=== PATIENT | female | born 1935 | race Caucasian/White ===

== ENCOUNTER → 2019-07-07 09:22 | Outpatient (BNVA) | payer BC, SELFPAY | PROVIDERS: PCP Family Medicine; Referring Provider Family Medicine; Visit Provider Otolaryngology | DX: H90.5 Unspecified sensorineural hearing loss (principal) | CPT/HCPCS: 99203; 99214 ==

== ENCOUNTER → 2019-07-30 10:00 | Outpatient (BNVA) | payer BC, SELFPAY | PROVIDERS: PCP Family Medicine; Visit Provider Family Medicine | DX: F03.90 Unspecified dementia, unspecified severity, without behavioral disturbance, psychotic disturbance, mood disturbance, and anxiety (principal); F41.9 Anxiety disorder, unspecified; F32.9 Major depressive disorder, single episode, unspecified; W19.XXXA Unspecified fall, initial encounter | CPT/HCPCS: 80053; 82607; 84443; 85025 ==

== ENCOUNTER 2020-01-14 08:53 | Emergency (ER) | payer BC, SELFPAY ==
[2020-01-14 08:55] VITALS: BP 142/73; PULSE 94; RESP 18; TEMP 36.3; O2SAT 96
[2020-01-14 09:22] LABS: Basophils % 0.2 %; Eosinophils % 0.5 %; Hemoglobin 10.8 g/dL (11.5-15.3); Lymphocytes # 1.5 10^3/uL (0.8-4.8); Lymphocytes % 35.3 %; Mean Corpuscular HGB Conc 31.8 g/dL (30.0-36.0); Mean Corpuscular Hemoglobin 29.9 pg (28.0-34.0); Mean Corpuscular Volume 94.2 fL (81-99); Mean Platelet Volume 10.4 fL (7.4-10.4); Monocytes # 0.4 10^3/uL (0.2-0.9); Monocytes % 9.7 %; Neutrophils # 2.27 10^3/uL (1.8-7.7); Neutrophils % 53.8 %; Nucleated Red Blood Cells % 0 %; Platelet Count 193 10^3/cmm (130-400); Red Blood Count 3.61 10^6/uL (4.1-5.3); Red Cell Distribution Width 12.9 % (12.1-15.1); White Blood Count 4.2 10^3/uL (4.0-10.0)
[2020-01-14 09:39] LABS: Alanine Aminotransferase 11 U/L (0-33); Albumin Level 4.1 g/dL (3.5-5.2); Alkaline Phosphatase 95 IU/L (35-105); Aspartate Amino Transferase 20 U/L (0-32); Blood Urea Nitrogen 13 mg/dL (8-23); Calcium 9.3 mg/dL (8.5-10.5); Carbon Dioxide 27 mmol/L (22-29); Chloride 104 mmol/L (98-107); Glucose 117 mg/dL (65-115); Osmolality Calculated 285 mOsm/kg (285-295); Sodium 139 mmol/L (136-145); Total Bilirubin 0.6 mg/dL (0.15-1.2); Total Protein 6.1 g/dL (6.6-8.7)
[2020-01-14 09:41] LABS: Anion Gap 12.3 (5-19); Potassium 4.3 mmol/L (3.5-5.1)
--- NOTE | 2020-01-14 09:49 | W.ED.FEMALGU ---
HPI - Female Genitourinary General: Chief complaint: Vaginal Bleeding Stated complaint: HEMORRHAGING Time Seen by Provider: 01/14/20 09:03 History of Present Illness: HPI Narrative: This patient is an 84-year-old female who lives at home with her daughter. Apparently she has been having some vaginal bleeding off and on for about a month. In the last 2 days it is become more prominent. The patient says it is bright red. She has not seen any clots. She said it was enough blood to be running down her leg. She is certain that it is not coming from her rectum or anywhere else. She had a hysterectomy about 45 years ago. She does not know why she had a hysterectomy. She denies any other complaints. MD elicited complaint: vaginal bleeding Associated symptoms: Deny vaginal bleeding Review of Systems General: Reports: ROS unobtainable due to medical condition (Dementia) [facility] ED PFSH: Medical History (Updated 01/14/20 @ 11:02 by Mena Velázquez MD) Anxiety and depression Dementia Fall Hypertension Sensorineural hearing loss Social History Smoking and tobacco status: former smoker Alcohol intake: never Physical Exam Const: COMMON NORMALS: no acute distress, patient oriented x3 and alert GENERAL APPEARANCE: cooperative and comfortable HENMT: HEAD & SCALP: normal to inspection FACE & SINUS: normal facial exam Eye: GENERAL EYE: appearance normal, both eyes and all related structures Neck/C-Spine: COMMON NORMALS: supple, no meningeal signs and no JVD Chest: COMMONS NORMALS: normal inspection of the chest Resp: COMMON NORMALS: normal respiratory effort, No use of accessory muscles and clear to auscultation bilaterally AUSCULTATION: clear to auscultation bilaterally Cardio: COMMON NORMALS: no JVD, regular rate, regular rhythm and No murmurs present (Cardio) RATE: regular rate RHYTHM: regular rhythm GI: COMMON NORMALS: Normal to inspection, nondistended, normoactive bowel sounds present, Soft to palpation and non-tender INSPECTION: Yes normal to inspection AUSCULTATION: Yes normoactive bowel sounds PALPATION: Yes Soft to palpation RECTAL EXAM: External hemorrhoid(s) present (Not thrombosed or bleeding) : COMMON NORMALS: Yes normal appearance of the vagina and No normal appearance of the cervix (Status post hysterectomy) EXTERNAL FEMALE EXAM: No laceration SPECULUM EXAM - VAGINA: No laceration and No vaginal bleeding OB/EXTERNAL & SPECULUM: No vaginal bleeding Back/Pelvis: COMMON NORMALS: thoracic and lumbar spine normal to inspection Extremity: COMMON NORMALS: normal to inspection Neuro: COMMON NORMALS: patient oriented x3, moves all extremities, no focal motor deficits and no sensory deficits noted SENSORIUM/ORIENTATION: Yes alert MENINGEAL SIGNS: Yes no meningeal signs Psych: COMMON NORMALS: mental status grossly normal, cooperative and normal affect Skin: COMMON NORMALS: no rashes or lesions noted and turgor normal GENERAL SKIN EXAM: no rashes or lesions noted and turgor normal Course ED course: Initial PT/INR came back higher than measurable. This was repeated several times and it was determined to be a lab error. The original specimen was rerun eventually and was normal. Exam was completely benign. Vitals are normal. Labs are unremarkable. She will be discharged home for follow-up with her outpatient provider. This could be blood coming from the rectum and she understands a colonoscopy might be indicated. Vital Signs: Vital signs: Vital Signs Temperature 97.4 F L 01/14/20 08:55 Pulse Rate 90 01/14/20 13:22 Respiratory Rate 17 01/14/20 13:22 Blood Pressure 151/81 01/14/20 13:22 Pulse Oximetry 98 01/14/20 13:22 MDM - Female Lab Data: Labs: Lab Results 01/14/20 01/14/20 01/14/20 Range/Units 09:10 09:10 09:10 WBC 4.2 (4.0-10.0) 10^3/ uL RBC 3.61 L (4.1-5.3) 10^6/u L Hgb 10.8 L (11.5-15.3) g/dL Hct 34.0 L (37.0-47.0) % MCV 94.2 (81-99) fL MCH 29.9 (28.0-34.0) pg MCHC 31.8 (30.0-36.0) g/dL RDW 12.9 (12.1-15.1) % Plt Count 193 (130-400) 10^3/c mm MPV 10.4 (7.4-10.4) fL Neut % (Auto) 53.8 % Lymph % (Auto) 35.3 % Pickett % (Auto) 9.7 % Eos % (Auto) 0.5 % Baso % (Auto) 0.2 % Neut # (Auto) 2.27 (1.8-7.7) 10^3/u L Lymph # (Auto) 1.5 (0.8-4.8) 10^3/u L Pickett # (Auto) 0.4 (0.2-0.9) 10^3/u L Eos # (Auto) 0.0 (0.0-0.8) 10^3/u L Baso # (Auto) 0.0 (0.0-0.1) 10^3/u L Nucleated RBC % (a uto) 0 % Nucleated RBCs # 0.0 /100WBC PT 13.30 (12.1-14.9) SECO NDS INR 0.98 (0.8-1.2) APTT Sodium 139 (136-145) mmol/L Potassium 4.3 (3.5-5.1) mmol/L Chloride 104 (98-107) mmol/L Carbon Dioxide 27 (22-29) mmol/L Anion Gap 12.3 (5-19) BUN 13 (8-23) mg/dL Creatinine 0.7 (0.5-0.9) mg/dL GFR Calculation Not Reportable Glucose 117 H (65-115) mg/dL Calculated Osmolal ity 285 (285-295) mOsm/k g Calcium 9.3 (8.5-10.5) mg/dL Total Bilirubin 0.6 (0.15-1.2) mg/dL AST 20 (0-32) U/L ALT 11 (0-33) U/L Alkaline Phosphata se 95 (35-105) IU/L Total Protein 6.1 L (6.6-8.7) g/dL Albumin 4.1 (3.5-5.2) g/dL Globulin 2.0 (1.3-4.6) g/dL Urine Color (Yellow) Urine Appearance (CLEAR) Urine pH (5-7) Ur Specific Gravit y (1.005-1.030) Urine Protein (Negative) Urine Glucose (UA) (Normal) Urine Ketones (Negative) Urine Blood (Negative) Urine Nitrate (Negative) Urine Bilirubin (NEGATIVE) Urine Urobilinogen (Negative) mg/dL Ur Leukocyte Isabelle ase (Negative) Urine RBC (0-2) /hpf Urine WBC (0-5) /hpf Ur Squamous Epith Cells (0-5) Amorphous Sediment Urine Bacteria (NONE) Urine Mucus 01/14/20 01/14/20 01/14/20 Range/Units 09:25 10:30 11:34 WBC (4.0-10.0) 10^3/ uL RBC (4.1-5.3) 10^6/u L Hgb (11.5-15.3) g/dL Hct (37.0-47.0) % MCV (81-99) fL MCH (28.0-34.0) pg MCHC (30.0-36.0) g/dL RDW (12.1-15.1) % Plt Count (130-400) 10^3/c mm MPV (7.4-10.4) fL Neut % (Auto) % Lymph % (Auto) % Pickett % (Auto) % Eos % (Auto) % Baso % (Auto) % Neut # (Auto) (1.8-7.7) 10^3/u L Lymph # (Auto) (0.8-4.8) 10^3/u L Pickett # (Auto) (0.2-0.9) 10^3/u L Eos # (Auto) (0.0-0.8) 10^3/u L Baso # (Auto) (0.0-0.1) 10^3/u L Nucleated RBC % (a uto) % Nucleated RBCs # /100WBC PT Cancelled 14.10 (12.1-14.9) SECO NDS INR Cancelled 1.06 (0.8-1.2) APTT Cancelled 26.1 Sodium (136-145) mmol/L Potassium (3.5-5.1) mmol/L Chloride (98-107) mmol/L Carbon Dioxide (22-29) mmol/L Anion Gap (5-19) BUN (8-23) mg/dL Creatinine (0.5-0.9) mg/dL GFR Calculation Glucose (65-115) mg/dL Calculated Osmolal ity (285-295) mOsm/k g Calcium (8.5-10.5) mg/dL Total Bilirubin (0.15-1.2) mg/dL AST (0-32) U/L ALT (0-33) U/L Alkaline Phosphata se (35-105) IU/L Total Protein (6.6-8.7) g/dL Albumin (3.5-5.2) g/dL Globulin (1.3-4.6) g/dL Urine Color Yellow (Yellow) Urine Appearance Cloudy (CLEAR) Urine pH 5 (5-7) Ur Specific Gravit y 1.025 (1.005-1.030) Urine Protein Neg (Negative) Urine Glucose (UA) Norm (Normal) Urine Ketones 1+ H (Negative) Urine Blood 3+ H (Negative) Urine Nitrate Negative (Negative) Urine Bilirubin 1+ H (NEGATIVE) Urine Urobilinogen 1 H (Negative) mg/dL Ur Leukocyte Isabelle ase 2+ H (Negative) Urine RBC 0-4 H (0-2) /hpf Urine WBC 10-15 H (0-5) /hpf Ur Squamous Epith Cells 15-25 H (0-5) Amorphous Sediment Not Reportable Urine Bacteria 1+ H (NONE) Urine Mucus 2+ Discharge Plan Discharge Clinical Impression: Bleeding, Normal genital exam Condition: Stable Prescriptions: No Action cyanocobalamin (vitamin B-12) 1,000 mcg capsule 1,000 mcg PO DAILY 90 Days Qty: 90 RF: 1 donepezil 5 mg tablet 5 mg PO DAILY RF: 0 lisinopril 5 mg tablet 5 mg PO DAILY RF: 0 Discharge Orders: Discharge Order (Routine); Ordered 01/14/20 Ordered By: Mena Velázquez Referrals: Lowell Benson MD [Primary Care Provider] - Discharge Diet: Usual diet Discharge Activity: Resume usual activity Patient Instructions: Hemorrhoids (ED) Activity Restrictions/Additional Instructions: Follow-up with your primary care provider for further evaluation if bleeding continues. No source of bleeding was found today. Continue your regular medications. Discharge Date/Time: 01/14/20 13:22 Coding Level of Care Code ED Expanded Duty Dental Assistant for Anabel Goldman
[2020-01-14 09:58] LABS: Add Urine Microscopic? YES; Bilirubin Urine 1+ (NEGATIVE); Blood Urine 3+ (Negative); Glucose Urine UA Norm (Normal); Ketones Urine 1+ (Negative); Leukocyte Esterase Urine 2+ (Negative); Nitrate Urine Negative (Negative); Protein Urine Neg (Negative); Specific Gravity, Urine 1.025 (1.005-1.030); Urine Appearance Cloudy (CLEAR); Urine Color Yellow (Yellow); Urobilinogen Urine 1 mg/dL (Negative); pH Urine 5 (5-7)
[2020-01-14 10:00] LABS: Bacteria Urine 1+; Mucus Urine 2+; RBC Urine 0-4 /hpf (0-2); Squamous Epithelial Cell Urine 15-25 (0-5)
[2020-01-14 10:01] VITALS: BP 133/65; PULSE 84; RESP 18; O2SAT 97
[2020-01-14 10:01] LABS: Add Urine Culture? No
[2020-01-14 11:54] LABS: INR 1.06 (0.8-1.2)
[2020-01-14 11:55] LABS: Partial Thromboplastin Time 26.1 SECONDS (23.9-36.7)
[2020-01-14 13:02] LABS: INR 0.98 (0.8-1.2)
[2020-01-14 13:22] VITALS: BP 151/81; PULSE 90; RESP 17; O2SAT 98
== END 2020-01-14 13:22 ==
PROVIDERS: Emergency Provider Emergency Medicine; PCP Family Medicine
DX: N93.9 Abnormal uterine and vaginal bleeding, unspecified (principal); F03.90 Unspecified dementia, unspecified severity, without behavioral disturbance, psychotic disturbance, mood disturbance, and anxiety; I10 Essential (primary) hypertension; Z87.891 Personal history of nicotine dependence
CPT/HCPCS: 12345; 36415; 80053; 81001; 85025; 85610; 85730; 99282; E0352

== ENCOUNTER 2020-02-09 12:55 | Emergency (ER) | payer BC, SELFPAY ==
[2020-02-09] VITALS (7 sets, daily range): BP systolic 102–142; BP diastolic 53–90; PULSE 75–83; RESP 14–18; O2SAT 94–100; BMI 20.7
--- NOTE | 2020-02-09 13:16 | XRR_ITS ---
PROCEDURE INFORMATION: Exam: XR Chest, 1 View Exam date and time: 02/09/2020 1:49 PM Age: 84 years old Clinical indication: Injury or trauma; Fall; Initial encounter; Blunt trauma (contusions or hematomas); Additional info: Fall, left ankle pain TECHNIQUE: Imaging protocol: XR of the chest Views: 1 view. COMPARISON: No relevant prior studies available. FINDINGS: Lungs: Unremarkable. No consolidation. Pleural space: Unremarkable. No pleural effusion. No pneumothorax. Heart/Mediastinum: Unremarkable. No cardiomegaly. Bones/joints: Unremarkable. XR/XR chest 1V portable [id number] IMPRESSION: No acute findings.
--- NOTE | 2020-02-09 13:16 | XRR_ITS ---
PROCEDURE INFORMATION: Exam: XR Left Ankle Exam date and time: 02/09/2020 1:47 PM Age: 84 years old Clinical indication: Pain and injury or trauma; Fall; Initial encounter; Blunt trauma; Ankle; Left TECHNIQUE: Imaging protocol: XR Left ankle. Views: 3 or more views. COMPARISON: No relevant prior studies available. FINDINGS: Bones/joints: There are fractures of the distal fibula and medial malleolus. There is dislocation at the left tibiotalar joint with the tibia anterior to the talus. There is osteopenia. Soft tissues: There is soft tissue swelling along the lateral, medial and anterior left ankle. XR/XR ankle LT min 3V* [id number] IMPRESSION: There is fracture dislocation of the left ankle as described above.
--- NOTE | 2020-02-09 13:16 | ECG_ITS ---
[facility] Test Date: 2020-02-09 Pat Name: Paige Regalado Department: Room: Gender: Female Heel Boom Operator: : [id number] Requested By: Deepak Perez Order Number: [id number] Reading MD: Rocío Yang M.D. Measurements Intervals [place] Rate: 63 P: 60 VT: 131 QRS: 47 QRSD: 96 T: 44 QT: 433 QTc: 445 Interpretive Statements SINUS RHYTHM WITH OCCASIONAL SUPRAVENTRICULAR PREMATURE COMPLEXES No previous ECG available for comparison Some nonspecific ST changes in the inferior leads Electronically Signed On 02-09-2020 18:32:19 CDT by Rocío Yang M.D. [id number]
--- NOTE | 2020-02-09 13:18 | ED_ITS ---
Documented by User: KATLIN Trivedi 02/10/20 07:05 HPI - Extremity Problem General: Chief complaint: Extremity Injury, Lower Stated complaint: Left ankle pain Time Seen by Provider: 02/09/20 13:00 [facility] ED PFSH: Medical History Anxiety and depression Dementia Fall Hypertension Sensorineural hearing loss Social History Smoking and tobacco status: former smoker Alcohol intake: never Course Vital Signs: Vital signs: Vital Signs Pulse Rate 78 02/09/20 15:54 Respiratory Rate 18 02/09/20 15:54 Blood Pressure 142/79 02/09/20 15:54 Pulse Oximetry 97 02/09/20 15:54 MDM - Extremity (Nontraumatic) Lab Data: Labs: Lab Results 02/09/20 02/09/20 02/09/20 Range/Units 13:27 13:27 13:27 WBC 5.3 (4.0-10.0) 10^3/ uL RBC 3.49 L (4.1-5.3) 10^6/u L Hgb 10.7 L (11.5-15.3) g/dL Hct 33.0 L (37.0-47.0) % MCV 94.6 (81-99) fL MCH 30.7 (28.0-34.0) pg MCHC 32.4 (30.0-36.0) g/dL RDW 12.7 (12.1-15.1) % Plt Count 187 (130-400) 10^3/c mm MPV 10.0 (7.4-10.4) fL Neut % (Auto) 66.8 % Lymph % (Auto) 22.7 % Calloway % (Auto) 8.8 % Eos % (Auto) 0.6 % Baso % (Auto) 0.4 % Neut # (Auto) 3.57 (1.8-7.7) 10^3/u L Lymph # (Auto) 1.2 (0.8-4.8) 10^3/u L Calloway # (Auto) 0.5 (0.2-0.9) 10^3/u L Eos # (Auto) 0.0 (0.0-0.8) 10^3/u L Baso # (Auto) 0.0 (0.0-0.1) 10^3/u L Nucleated RBC % (a uto) 0 % Nucleated RBCs # 0.0 /100WBC PT 14.20 (12.1-14.9) SECO NDS INR 1.06 (0.8-1.2) Sodium 138 (136-145) mmol/L Potassium 3.8 (3.5-5.1) mmol/L Chloride 100 (98-107) mmol/L Carbon Dioxide 25 (22-29) mmol/L Anion Gap 16.8 (5-19) BUN 20 (8-23) mg/dL Creatinine 0.6 (0.5-0.9) mg/dL GFR Calculation Not Reportable Glucose 137 H (65-115) mg/dL Calculated Osmolal ity 291 (285-295) mOsm/k g Calcium 8.5 (8.5-10.5) mg/dL Total Bilirubin 0.4 (0.15-1.2) mg/dL AST 15 (0-32) U/L ALT 10 (0-33) U/L Alkaline Phosphata se 76 (35-105) IU/L Total Protein 6.3 L (6.6-8.7) g/dL Albumin 3.9 (3.5-5.2) g/dL Globulin 2.4 (1.3-4.6) g/dL Nasal/Oral COVID-1 9 PCR //20 Range/Units 15:28 WBC (4.0-10.0) 10^3/ uL RBC (4.1-5.3) 10^6/u L Hgb (11.5-15.3) g/dL Hct (37.0-47.0) % MCV (81-99) fL MCH (28.0-34.0) pg MCHC (30.0-36.0) g/dL RDW (12.1-15.1) % Plt Count (130-400) 10^3/c mm MPV (7.4-10.4) fL Neut % (Auto) % Lymph % (Auto) % Calloway % (Auto) % Eos % (Auto) % Baso % (Auto) % Neut # (Auto) (1.8-7.7) 10^3/u L Lymph # (Auto) (0.8-4.8) 10^3/u L Calloway # (Auto) (0.2-0.9) 10^3/u L Eos # (Auto) (0.0-0.8) 10^3/u L Baso # (Auto) (0.0-0.1) 10^3/u L Nucleated RBC % (a uto) % Nucleated RBCs # /100WBC PT (12.1-14.9) SECO NDS INR (0.8-1.2) Sodium (136-145) mmol/L Potassium (3.5-5.1) mmol/L Chloride (98-107) mmol/L Carbon Dioxide (22-29) mmol/L Anion Gap (5-19) BUN (8-23) mg/dL Creatinine (0.5-0.9) mg/dL GFR Calculation Glucose (65-115) mg/dL Calculated Osmolal ity (285-295) mOsm/k g Calcium (8.5-10.5) mg/dL Total Bilirubin (0.15-1.2) mg/dL AST (0-32) U/L ALT (0-33) U/L Alkaline Phosphata se (35-105) IU/L Total Protein (6.6-8.7) g/dL Albumin (3.5-5.2) g/dL Globulin (1.3-4.6) g/dL Nasal/Oral COVID-1 9 PCR Negative Discharge Plan Discharge Patient Disposition: Home Clinical Impression: Trimalleolar fracture of left ankle Condition: Stable Prescriptions: New hydrocodone-acetaminophen 5-325 mg tablet 1 tab PO Q6H PRN (Reason: pain) Qty: 20 RF: 0 Zofran 4 mg tablet 4 mg PO Q6H PRN (Reason: nausea and vomiting) Qty: 15 RF: 0 No Action hydrocodone-acetaminophen [[place]] 5-325 mg tablet 1 tab PO Q4H PRN (Reason: pain) 7 Days Qty: 30 RF: 0 cyanocobalamin (vitamin B-12) 1,000 mcg capsule 1,000 mcg PO DAILY 90 Days Qty: 90 RF: 1 donepezil 5 mg tablet 5 mg PO DAILY RF: 0 lisinopril 5 mg tablet 5 mg PO DAILY RF: 0 citalopram 10 mg tablet 10 mg PO DAILY RF: 0 Discharge Orders: Discharge Order (Routine); Ordered 02/09/20 Ordered By: Cale Childress Referrals: Lowell Benson MD [Primary Care Provider] - Discharge Diet: Usual diet Discharge Activity: Limit activity as instructed Activity Restrictions/Additional Instructions: Nonweightbearing on the affected limb. Case management will call for referral to orthopedics for definitive surgical care. Discharge Date/Time: 02/09/20 15:56 Coding Level of Care Code ED Cloth Laminating Supervisor for Chg Fwd Exam Comprehensive Documented by User: Cale Childress, 02/13/20 09:22 HPI - Extremity Problem General: Chief complaint: Extremity Injury, Lower Stated complaint: Left ankle pain Time Seen by Provider: 02/09/20 13:00 History of Present Illness: HPI Narrative: 84-year-old female presents emergency room via EMS she has moderate dementia she fell down 6 stairs at home she did strike her head did not lose consciousness she lives with mother family members are was not a prolonged downtime. She is complaining of left ankle pain and has a pillow splint in place. Complaint: extremity pain and joint pain Onset (ago): minute(s) Pain Consistency: constant Location: left Quality: sharp and constant Radiation: none Relieving factors: rest Exacerbating factors: palpation Associated symptoms: Deny arthralgias, chest pain, fever(s), myalgias, rash or short of breath Review of Systems Const: Denies: fever(s) ENMT: Denies: throat pain, ear or mastoid pain, nasal discharge or nasal congestion Card: Denies: chest pain Resp: Denies: dyspnea, productive cough or non-productive cough GI: Denies: abdominal pain, nausea, vomiting, hematemesis, coffee ground emesis, diarrhea, constipation, bloating, hematochezia or melena : Denies: flank pain, difficulty voiding, dysuria, urinary frequency or u rinary urgency Skin/Breast: Denies: rash PFSH ED PFSH: Medical History Anxiety and depression Dementia Fall Hypertension Sensorineural hearing loss Social History Smoking and tobacco status: former smoker Alcohol intake: never Physical Exam Const: COMMON NORMALS: no acute distress GENERAL APPEARANCE: cooperative and comfortable ORIENTATION/CONSCIOUSNESS: Yes awake, Yes oriented to person, Yes oriented to place and Yes oriented to time HENMT: COMMON NORMALS: normocephalic, atraumatic and hearing grossly normal bilaterally HEAD & SCALP: normocephalic and atraumatic Eye: COMMON NORMALS: Equal, round and reactive pupils present, EOMs intact bilaterally, conjunctivae normal and no scleral icterus CONJUNCTIVA: Yes conjunctivae normal PUPIL: Yes Equal, round and reactive pupils present Neck/C-Spine: COMMON NORMALS: full ROM, no lymphadenopathy, supple and no JVD Resp: COMMON NORMALS: normal respiratory effort, No retractions, No use of accessory muscles and clear to auscultation bilaterally AUSCULTATION: clear to auscultation bilaterally Cardio: COMMON NORMALS: no JVD, regular rate, regular rhythm and No murmurs present (Cardio) RATE: regular rate RHYTHM: regular rhythm GI: COMMON NORMALS: Soft to palpation and No hepatosplenomegaly present AUSCULTATION: Yes normoactive bowel sounds PALPATION: Yes Soft to palpation, No Tenderness to palpation present (GI), No Guarding due to palpation present (GI) and Yes No hepatosplenomegaly present Extremity: NARRATIVE EXTREMITY EXAM: Obvious deformity of the left ankle with some early bruising pulses palpable. No open wounds. Neuro: SENSORIUM/ORIENTATION: Yes oriented to person, Yes oriented to place and Yes oriented to time Skin: COMMON NORMALS: no rashes or lesions noted GENERAL SKIN EXAM: no rashes or lesions noted Procedures Orthopedic Fracture Reduction Fracture #1: Time Out Performed: Yes Side: left Fracture Reduction Location: tibia and fibula Analgesia: procedural sedation Technique: direct manipulation Post Reduction X-rays Demonstrate: anatomical reduction Post-reduction neuro exam: intact Post-reduction vascular exam: intact Splint Applied: Yes Patient Tolerated Procedure: well Additional Comments: Post reduction shows good alignment. Will splint and refer to Ortho for definitive care Procedural Sedation Indication: fracture/dislocation reduction Preparation: telemetry monitor applied, pulse oximeter, supplemental O2 applied, suction/airway equipment at bedside and IV secured IV Etomidate dose (mg): 10 Patient Tolerated Procedure: well Complications: none Course Vital Signs: Vital signs: Vital Signs Pulse Rate 78 02/09/20 15:54 Respiratory Rate 18 02/09/20 15:54 Blood Pressure 142/79 02/09/20 15:54 Pulse Oximetry 97 02/09/20 15:54 MDM - Extremity (Nontraumatic) MDM Narrative: Medical decision making narrative: Discussed with Dr. Tello. We have reduced the fracture and applied a splint. Patient tolerated procedure well after recovery she was discharged. Will make arrangements for her to follow-up with Ortho a screening COVID swab was done [facility] to [facility] her for surgery. Lab Data: Labs: Lab Results 02/09/20 02/09/20 02/09/20 Range/Units 13:27 13:27 13:27 WBC 5.3 (4.0-10.0) 10^3/ uL RBC 3.49 L (4.1-5.3) 10^6/u L Hgb 10.7 L (11.5-15.3) g/dL Hct 33.0 L (37.0-47.0) % MCV 94.6 (81-99) fL MCH 30.7 (28.0-34.0) pg MCHC 32.4 (30.0-36.0) g/dL RDW 12.7 (12.1-15.1) % Plt Count 187 (130-400) 10^3/c mm MPV 10.0 (7.4-10.4) fL Neut % (Auto) 66.8 % Lymph % (Auto) 22.7 % Calloway % (Auto) 8.8 % Eos % (Auto) 0.6 % Baso % (Auto) 0.4 % Neut # (Auto) 3.57 (1.8-7.7) 10^3/u L Lymph # (Auto) 1.2 (0.8-4.8) 10^3/u L Calloway # (Auto) 0.5 (0.2-0.9) 10^3/u L Eos # (Auto) 0.0 (0.0-0.8) 10^3/u L Baso # (Auto) 0.0 (0.0-0.1) 10^3/u L Nucleated RBC % (a uto) 0 % Nucleated RBCs # 0.0 /100WBC PT 14.20 (12.1-14.9) SECO NDS INR 1.06 (0.8-1.2) Sodium 138 (136-145) mmol/L Potassium 3.8 (3.5-5.1) mmol/L Chloride 100 (98-107) mmol/L Carbon Dioxide 25 (22-29) mmol/L Anion Gap 16.8 (5-19) BUN 20 (8-23) mg/dL Creatinine 0.6 (0.5-0.9) mg/dL GFR Calculation Not Reportable Glucose 137 H (65-115) mg/dL Calculated Osmolal ity 291 (285-295) mOsm/k g Calcium 8.5 (8.5-10.5) mg/dL Total Bilirubin 0.4 (0.15-1.2) mg/dL AST 15 (0-32) U/L ALT 10 (0-33) U/L Alkaline Phosphata se 76 (35-105) IU/L Total Protein 6.3 L (6.6-8.7) g/dL Albumin 3.9 (3.5-5.2) g/dL Globulin 2.4 (1.3-4.6) g/dL Nasal/Oral COVID-1 9 PCR // Range/Units 15:28 WBC (4.0-10.0) 10^3/ uL RBC (4.1-5.3) 10^6/u L Hgb (11.5-15.3) g/dL Hct (37.0-47.0) % MCV (81-99) fL MCH (28.0-34.0) pg MCHC (30.0-36.0) g/dL RDW (12.1-15.1) % Plt Count (130-400) 10^3/c mm MPV (7.4-10.4) fL Neut % (Auto) % Lymph % (Auto) % Calloway % (Auto) % Eos % (Auto) % Baso % (Auto) % Neut # (Auto) (1.8-7.7) 10^3/u L Lymph # (Auto) (0.8-4.8) 10^3/u L Calloway # (Auto) (0.2-0.9) 10^3/u L Eos # (Auto) (0.0-0.8) 10^3/u L Baso # (Auto) (0.0-0.1) 10^3/u L Nucleated RBC % (a uto) % Nucleated RBCs # /100WBC PT (12.1-14.9) SECO NDS INR (0.8-1.2) Sodium (136-145) mmol/L Potassium (3.5-5.1) mmol/L Chloride (98-107) mmol/L Carbon Dioxide (22-29) mmol/L Anion Gap (5-19) BUN (8-23) mg/dL Creatinine (0.5-0.9) mg/dL GFR Calculation Glucose (65-115) mg/dL Calculated Osmolal ity (285-295) mOsm/k g Calcium (8.5-10.5) mg/dL Total Bilirubin (0.15-1.2) mg/dL AST (0-32) U/L ALT (0-33) U/L Alkaline Phosphata se (35-105) IU/L Total Protein (6.6-8.7) g/dL Albumin (3.5-5.2) g/dL Globulin (1.3-4.6) g/dL Nasal/Oral COVID-1 9 PCR Negative Discharge Plan Discharge Patient Disposition: Home Clinical Impression: Trimalleolar fracture of left ankle Condition: Stable Prescriptions: New hydrocodone-acetaminophen 5-325 mg tablet 1 tab PO Q6H PRN (Reason: pain) Qty: 20 RF: 0 Zofran 4 mg tablet 4 mg PO Q6H PRN (Reason: nausea and vomiting) Qty: 15 RF: 0 No Action hydrocodone-acetaminophen [[place]] 5-325 mg tablet 1 tab PO Q4H PRN (Reason: pain) 7 Days Qty: 30 RF: 0 cyanocobalamin (vitamin B-12) 1,000 mcg capsule 1,000 mcg PO DAILY 90 Days Qty: 90 RF: 1 donepezil 5 mg tablet 5 mg PO DAILY RF: 0 lisinopril 5 mg tablet 5 mg PO DAILY RF: 0 citalopram 10 mg tablet 10 mg PO DAILY RF: 0 Discharge Orders: Discharge Order (Routine); Ordered 02/09/20 Ordered By: Cale Childress Referrals: Lowell Benson MD [Primary Care Provider] - Discharge Diet: Usual diet Discharge Activity: Limit activity as instructed Activity Restrictions/Additional Instructions: Nonweightbearing on the affected limb. Case management will call for referral to orthopedics for definitive surgical care. Discharge Date/Time: 02/09/20 15:56 Coding Level of Care Code ED Cloth Laminating Supervisor for Chg Fwd Exam Comprehensive
[2020-02-09 13:35] LABS: Basophils % 0.4 %; Eosinophils % 0.6 %; Hemoglobin 10.7 g/dL (11.5-15.3); Lymphocytes # 1.2 10^3/uL (0.8-4.8); Lymphocytes % 22.7 %; Mean Corpuscular HGB Conc 32.4 g/dL (30.0-36.0); Mean Corpuscular Hemoglobin 30.7 pg (28.0-34.0); Mean Corpuscular Volume 94.6 fL (81-99); Monocytes # 0.5 10^3/uL (0.2-0.9); Monocytes % 8.8 %; Neutrophils # 3.57 10^3/uL (1.8-7.7); Neutrophils % 66.8 %; Nucleated Red Blood Cells % 0 %; Platelet Count 187 10^3/cmm (130-400); Red Blood Count 3.49 10^6/uL (4.1-5.3); Red Cell Distribution Width 12.7 % (12.1-15.1); White Blood Count 5.3 10^3/uL (4.0-10.0)
[2020-02-09 13:54] LABS: INR 1.06 (0.8-1.2)
[2020-02-09 14:00] LABS: Alanine Aminotransferase 10 U/L (0-33); Albumin Level 3.9 g/dL (3.5-5.2); Alkaline Phosphatase 76 IU/L (35-105); Anion Gap 16.8 (5-19); Aspartate Amino Transferase 15 U/L (0-32); Blood Urea Nitrogen 20 mg/dL (8-23); Calcium 8.5 mg/dL (8.5-10.5); Carbon Dioxide 25 mmol/L (22-29); Chloride 100 mmol/L (98-107); Globulin 2.4 g/dL (1.3-4.6); Glucose 137 mg/dL (65-115); Osmolality Calculated 291 mOsm/kg (285-295); Potassium 3.8 mmol/L (3.5-5.1); Sodium 138 mmol/L (136-145); Total Bilirubin 0.4 mg/dL (0.15-1.2); Total Protein 6.3 g/dL (6.6-8.7)
[2020-02-09] MEDS: morphine 4 mg/mL SDV 1 mL IVP (14:27)
--- NOTE | 2020-02-09 15:07 | XRR_ITS ---
PROCEDURE INFORMATION: Exam: XR Left Ankle Exam date and time: 02/09/2020 3:08 PM Age: 84 years old Clinical indication: Abnormal findings; Abnormal imaging study; Left ankle; Additional info: Postreduction TECHNIQUE: Imaging protocol: XR Left ankle. Views: 1 or 2 views. COMPARISON: CR XR ankle LT min 3V* [id number] 02/09/2020 1:30 PM FINDINGS: Bones/joints: There are fractures of the medial malleolus and distal fibula. Alignment of the fracture fragments has improved, especially at the tibiotalar joint. Soft tissues: There is soft tissue swelling along the lateral malleolus. XR/XR ankle LT 2V [id number] IMPRESSION: Alignment of the fracture fragments has improved, especially at the tibiotalar joint.
--- NOTE | 2020-02-09 15:07 | DCPLANNER ---
manager army was asked to schedule a follow up appointment for patient with ortho. manager army called the ortho clinic, spoke with Pat, gave clinic patients information. manager army was told that patients information would be printed and reviewed. Clinic will call patient with appointment information.
--- NOTE | 2020-02-10 14:07 | DCPLANNER ---
Patient has a follow up appointment scheduled for Saturday, February 12, 2020 at 9:[address] Tello. Clinic will call patient with appointment information.
[2020-02-10 23:07] LABS: Coronavirus Lab Test PTC Negative
--- NOTE | 2020-02-11 08:34 | PC.NURSE ---
Pt notified of negative COVID result.
--- NOTE | 2020-02-23 15:28 | DCPLANNER ---
Patient had a follow up appointment scheduled for 02.12.20 with ortho - patient did attend appointment.
== END 2020-02-09 15:56 | disposition home or self-care (01) ==
PROVIDERS: Nurse Practitioner Family; Emergency Provider Family Medicine; PCP Family Medicine
DX: S82.852A Displaced trimalleolar fracture of left lower leg, initial encounter for closed fracture (principal); W10.8XXA Fall (on) (from) other stairs and steps, initial encounter; F03.90 Unspecified dementia, unspecified severity, without behavioral disturbance, psychotic disturbance, mood disturbance, and anxiety; I10 Essential (primary) hypertension; Z87.891 Personal history of nicotine dependence
CPT/HCPCS: 12345; 27818; 29505; 36415; 71045; 73600; 73610; 80053; 85025; 85610; 87635; 93005; 96374; 96375; 99284; J2270; J3490

== ENCOUNTER 2020-02-17 09:03 | Inpatient (IN) | payer MEDICARE, SELFPAY ==
[2020-02-17] VITALS (50 sets, daily range): BP systolic 96–159; BP diastolic 48–107; PULSE 69–136; RESP 12–29; TEMP 34.9–36.9; O2SAT 91–100
--- NOTE | 2020-02-17 | XR_ITS ---
WS: [id number] C-ARM RADIOGRAPHS LEFT ANKLE; 4 IMAGES HISTORY: ORIF ANKLE COMPARISON: 02/09/2020 Intraoperative bimalleolar ORIF. 2 screws stabilizing the medial malleolus. Plate and screw fixation distal fibular fracture. Fractures are in good position alignment. XR/XR ankle LT 2V [id number] IMPRESSION: Status post ORIF bimalleolar fractures.
--- NOTE | 2020-02-17 | SCC_ITS ---
Procedure Done: Reduction internal fixation left medial and lateral malleolus 84.9 seconds of fluoroscopic guidance, for a cumulative dose of 2.45 mGy, was provided to Dr. Tello by the radiology department. C-arm images of the LEFT ankle were saved for the patient's permanent record. [facility]
[2020-02-17] MEDS: sodium chloride 0.9% 1,000 ML 30 ML IV (05:54)
--- NOTE | 2020-02-17 05:58 | ECG_ITS ---
[facility] Test Date: 2020-02-17 Pat Name: Paige Regalado Department: Room: Gender: Female Portfolio Director: : 1935 Requested By: Vicki Avila Order Number: [id number] Brandee MD: Josse Osei M.D. Measurements Intervals [place] Rate: 74 P: 51 WV: 145 QRS: 12 QRSD: 95 T: 43 QT: 380 QTc: 424 Interpretive Statements SINUS RHYTHM WITH OCCASIONAL SUPRAVENTRICULAR PREMATURE COMPLEXES Compared to ECG 02/09/2020 15:13:13 No significant changes Electronically Signed On 02-17-2020 18:37:28 CDT by Josse Osei M.D. [id number]
--- NOTE | 2020-02-17 06:20 | ANES.PREANE2 ---
Pre-Anesthetic Assessment Pre-Anesthetic Assessment: Height/Weight: Height 1.65 m Weight 50.802 kg Temp Pulse Resp BP Pulse Ox 97.9 F 86 18 159/75 97 02/17/20 05:40 02/17/20 05:40 02/17/20 05:40 02/17/20 05:40 02/17/20 05:40 Preop Diagnosis: Left trimalleolar ankle Proposed Procedure: Operation Date: 02/17/20 07:00 Proposed Procedures p ORIF Ankle 71206 S82.852A(Left) - Evans Tello MD Familial anesthetic complications: None Was Beta Khadijah taken within 24 hours: N/A Last intake: Intake Last Liquid Date 02/16/20 Last Liquid Time 20:00 Last Solid Date 02/16/20 Last Solid Time 19:00 Social: Comment: former smoker Exam: Pre-Anes Outpt Exam: alert, oriented x 3, clear to auscultation bilaterally and regular rate & rhythm Airway: Cervical ROM: WNL MP: 2 Dentition: False CV/HEM: CV/HEM: HTN Neuropsych: Neuropsych: Dementia Anesthetic Plan: ASA status: 2 Anesthesia: General and Regional (specify below) Risk of > 500 ml blood loss (7ml/kg in children): No Meds/Allergies Current Medications: Current Medications Generic Name Dose Route Start Last Admin Trade Name Freq PRN Reason Stop Dose Admin Sodium Chloride 1,000 mls @ 30 ml s/hr 02/17/20 05:30 02/17/20 05:54 Sodium Chloride 0.9% IV 02/18/20 05:29 30 mls/hr .Q24H ABBIE Administration PFSH Anesthesia PFSH: Medical History (Updated 02/17/20 @ 00:00 by ) Anxiety and depression Dementia Fall Hypertension Sensorineural hearing loss Social History Smoking and tobacco status: former smoker Alcohol intake: never Data Anesthesia Cardiac Studies: No Data to Display
--- NOTE | 2020-02-17 06:41 | ANES.PROC ---
Anesthesia Procedures Procedure/Date: 02/17/20 Nerve Block ^: Nerve Block 1: Main Anesthesia: general anesthesia Time Out Performed: Yes Consent: requested by attending/covering physician, from patient, risks and benefits reviewed and patient agrees to proceed Nerve block location: popliteal (L) Anesthesia monitors applied: pulse oximetry, EKG, BP cuff and oxygen Nerve block position: supine Anesthetic Used: ropivicaine 0.5% and with decadron (3) Amount of anesthesia used (mL): 20 Ultrasound used to: recognize landmarks Nerve Stimulator Used?: No Interscalene/Femoral BLK: 4 stimuplex 21 g needle used for position and inplane approach, visualize local anesthetic spread and no vascular puncture identified Injection: neg aspiration of heme Patient Tolerated Procedure: well and no complications Complications: none Nerve Block 2: Main Anesthesia: general anesthesia Time Out Performed: Yes Consent: requested by attending/covering physician, from patient, risks and benefits reviewed and patient agrees to proceed Nerve block location: adductor canal (L) Anesthesia monitors applied: pulse oximetry, EKG, BP cuff and oxygen Anesthetic Used: ropivicaine 0.5% and with decadron (1) Amount of anesthesia used (mL): 10 Ultrasound used to: recognize landmarks Nerve Stimulator Used?: No Interscalene/Femoral BLK: 4 stimuplex 21 g needle used for position and inplane approach, visualize local anesthetic spread and no vascular puncture identified Injection: neg aspiration of heme Patient Tolerated Procedure: well and no complications Complications: none
--- NOTE | 2020-02-17 07:03 | W.PM.OPSUD ---
Surgery/Procedure H&P Update DATE OF PROCEDURE: February 17, 2020 DATE H&P PERFORMED: 02/12/20 PREOP DIAGNOSIS: Left trimalleolar ankle PLANNED PROCEDURE: Operation Date: 02/17/20 07:00 Proposed Procedures p ORIF Ankle 09319 S82.852A(Left) - Evans Tello MD
--- NOTE | 2020-02-17 08:29 | PM.OP ---
Operative Report Date of procedure: February 17, 2020 Pre-op Diagnosis: Left trimalleolar ankle Post-op diagnosis: same Post-op Findings: The patient had a transverse fracture of the medial malleolus at the mortise with minimal medial comminution. There was an spiral lateral malleolar fracture at the level of the mortise with a slight amount of the lateral comminution and a small posterior malleolar fragment Procedure Done: Reduction internal fixation left medial and lateral malleolus Pathology: none sent Surgeon: Evans Tello Anesthesia: General Estimated blood loss (mL): 10 Tourniquet time (min): 56 Findings: The patient had a transverse fracture of the medial malleolus at the mortise with minimal medial comminution. There was an spiral lateral malleolar fracture at the level of the mortise with a slight amount of the lateral comminution and a small posterior malleolar fragment Condition: stable Disposition: PACU Procedure: The patient was taken to the operating room and given a general anesthesia. She was given 2 g of Ancef. She was prepped and draped in the supine position with a tourniquet on the left thigh. Timeout was performed. The tourniquet was inflated 250 mmHg. Initially a 3 cm long medial incision was made over the medial malleolar fracture. There was some slight comminution of the medial wall. Talo reduction clamp was used to reduced the fracture and the fracture was secured with 2 partially-threaded cannulated screws with washers. No screws engaged the far lateral cortex. Next a 6 cm long incision was made over the distal fibula and dissection carried down with the fibula. There is a small amount of lateral comminution in the fibula was brought out to length. A short [place] Variax plate was contoured to the distal fibula. It was fixated proximally and distally with locking screws securing the fibula. Throughout the case bone quality was felt marginally adequate due to generalized osteoporosis. The wound was irrigated with saline. Deep tissues were closed with 2-0 Vicryl. The skin was closed with skin mehran. Xeroflo gauze, 4 x 4's, compressive web roll and an Navneet wrap, and a postop boot were applied. The conclusion of the procedure the patient was noted to be in atrial fibrillation cardiology was consulted for further suggested management
--- NOTE | 2020-02-17 08:32 | ECG_ITS ---
[facility] Test Date: 2020-02-17 Pat Name: Paige Regalado Department: Room: Gender: Female Systems Applications Programming Lead: : 1935 Requested By: Evans Tello Order Number: [id number] Brandee MD: Josse Osei M.D. Measurements Intervals [place] Rate: 113 P: TN: -1 QRS: 7 QRSD: 91 T: 89 QT: 328 QTc: 450 Interpretive Statements ATRIAL FIBRILLATION WITH RAPID VENTRICULAR RESPONSE NONSPECIFIC ST & T-WAVE ABNORMALITY ABNORMAL RHYTHM ECG Compared to ECG 02/17/2020 06:15:34 T-wave abnormality now present Sinus rhythm no longer present Electronically Signed On 02-17-2020 18:36:06 CDT by Josse Osei M.D. [id number]
--- NOTE | 2020-02-17 09:02 | PM.CONSULT ---
Providers/Reason For Consult Consulting Physican/Specialty*: Dr. JC Yang/cardiology Reason for Consult*: Patient with atrial fibrillation and hypotension Attending Physician: Evans Tello MD Primary Care Provider: Lowell Benson MD History of Present Illness History of Present Illness Paige Regalado is a 84 year old female who is in the operating room undergoing fixation of the trimalleolar fracture of the left ankle. During the middle of the procedure, she went into atrial fibrillation with rapid ventricular rate. Her blood pressure also dropped into the 70s. She was given esmolol bolus which did not help the heart rate. She required Kevon-Synephrine to maintain the systolic blood pressure above 100. She also was given 1.25 L of normal saline. Her blood pressure went up and stayed around 100 to 110 millimeters of mercury systolic. I was called to the operating room at this point. The heart rate was still in the 120s. Blood pressure was around 110 mmHg systolic. She was given a bolus of IV amiodarone 300 mg. Electrical cardioversion was attempted with her 125, 150, 175 and 200 J of biphasic current. She stayed in the sinus rhythm for a brief moment and then went back into atrial fibrillation, soon after these cardioversions. Currently her blood pressure is around 130/82 with a Kevon-Synephrine drip. Heart rate is in the 80s. She still in the atrial fibrillation mostly with occasional sinus beats. Remains intubated. I talked to patient's granddaughter. She has a longstanding history of hypertension. Never had any atrial fibrillation. No history for any CVA. No history for coronary artery disease or myocardial infarction. She has a history of dementia and also frequent falls. Review of Systems Narrative: CONSTITUTIONAL: No fever or chills. EYES: No blurring of vision or other visual disturbances lately. ENT: No hoarseness of voice, auditory disturbances or sore throat. CARDIOVASCULAR: As mentioned above. RESPIRATORY: No significant cough. GASTROINTESTINAL: No hematemesis or melena. GENITOURINARY: No dysuria or hematuria. INTEGUMENTARY: No skin rashes NEURO: History of dementia PSYCHIATRIC: No history of psychosis or major depression. HEMATOLOGIC: No bleeding disorders or significant anemia. ENDOCRINE: No history of polyuria or polydipsia. MUSCULOSKELETAL: Frequent falls and trimalleolar fracture of the left ankle ALLERGY/IMMUNOLOGY: As mentioned above. Meds/Allergies Home Medications and Allergies Home Medications Medication Instructions Recorded Confirmed Last Taken Type cyanocobalamin (vitamin B-12) 1,000 mcg PO DAILY 90 Days #90 cap 11/25/19 02/17/20 02/16/20 Rx 1,000 mcg capsule donepezil 5 mg PO DAILY 01/14/20 02/17/20 02/16/20 History lisinopril 5 mg PO DAILY 01/14/20 02/17/20 02/16/20 History citalopram 10 mg PO DAILY 02/09/20 02/17/20 02/16/20 History hydrocodone-acetaminophen 1 tab PO Q6H PRN #20 tab 02/09/20 02/16/20 Unknown Rx ondansetron HCl [Zofran] 4 mg PO Q6H PRN #15 tab 02/09/20 02/17/20 02/15/20 Rx hydrocodone 5 mg-acetaminophen 325 1 tab PO Q4H PRN 7 Days #30 tab 02/12/20 02/17/20 02/16/20 Rx mg tablet hydrocodone-acetaminophen [[place]] 1 tab PO Q4H PRN #20 tab 02/17/20 Unknown Rx Allergies Allergy/AdvReac Type Severity Reaction Status Date / Time No Known Allergies Allergy Verified 02/12/20 09:19 Current Medications Current Medications Generic Name Dose Route Start Last Admin Trade Name Freq PRN Reason Stop Dose Admin Sodium Chloride 1,000 mls @ 30 mls/hr 02/17/20 05:30 02/17/20 07:51 Sodium Chloride 0.9% IV 02/18/20 05:29 Infused .Q24H ABBIE Infusion PFSH Acute PFSH: Medical History Anxiety and depression Benign essential hypertension with target blood pressure below 140/90 Dementia Fall Hypertension Sensorineural hearing loss Surgical History (Updated 02/17/20 @ 11:12 by Colleen White DO) History of cholecystectomy History of open reduction and internal fixation (ORIF) procedure Left medial and lateral malleolus History of total hysterectomy Social History Smoking and tobacco status: former smoker Alcohol intake: never Vitals/I&O/Wt Last Vital Signs Temp 97.9 F 02/17/20 05:40 Pulse 87 02/17/20 08:57 Resp 18 02/17/20 05:40 BP 135/90 02/17/20 08:57 Pulse Ox 100 02/17/20 08:57 02/16/20 02/17/20 02/17/20 22:59 06:59 14:59 Intake Total 1050 / 1050 Balance 1050 / 1050 Weight last 48 hrs Weight 112 lb Physical Exam Narrative: EXAM NARRATIVE: GENERAL: The patient is intubated and sedated. HEENT: Minimal pallor, icterus or lymphadenopathy NECK: Trachea appears to be central. No masses noted. No JVD or thyromegaly appreciated. No carotid bruit. RESPIRATORY: Chest is symmetrical. No intercostals muscle retraction or any accessory muscle activation. There is no chest wall tenderness. Breath sounds are heard bilaterally. No rales or rhonchi heard. No evidence of any consolidation. BREASTS: Deferred. HEART: The heart sounds are variable. No S3. Short systolic murmur at the left sternal border. No diastolic murmurs. ABDOMEN: No vessel pulsations or distention. No tenderness. No organomegaly appreciated. No abdominal bruit. Bowel sounds are normally heard. : Deferred. RECTAL: Deferred. LYMPHATIC: No lymphadenopathy noted in the neck . EXTREMITIES: No edema or cyanosis. No clubbing. Peripheral pulses are palpable but weak bilaterally MUSCULOSKELETAL: Trimalleolar fracture of the left ankle-status post fixation SKIN: There are no significant scars or skin rash noted. NEUROPSYCHIATRIC: Patient is intubated and sedated. A&P Assessment and plan (1) New onset atrial fibrillation: Patient needs to be closely monitored in the ICU. Will do an echocardiogram to evaluate LV function and also look for any wall motion normalities. Will start her on an esmolol drip. Patient on the response, further management decisions will be made. Status: Acute (2) Hypotension: This could be multifactorial. Patient may be carefully hydrated. May be appropriate to continue the vasopressor for the time being. Based on the clinical progress, further recommendations will be made. Status: Acute (3) Benign essential hypertension with target blood pressure below 140/90: Patient apparently was normotensive prior to the procedure. Status: Acute Additional A&P Information Will get serial cardiac enzymes and EKGs to rule out myocardial infarction. Will be closely monitored on telemetry. Discussed with Coding Level of Care Code Acute Tongue And Quarter Stitcher for Anabel Fwd Diagnoses New onset atrial fibrillation I48.91 Hypotension I95.9 Benign essential hypertension with target blood pressure below 140/90 I10
--- NOTE | 2020-02-17 09:15 | PC.NURSE ---
Pt arrived to ICU from surgery. A-fib at rate in 80 s noted. Art line noted right wirst, very positional. IV site noted left forearm. Pt on 3lpm/ simple mask. Pt answering questions. Pt also asked ow is she? Hpothermia noted, Difficulty obtaining temp, 4 th attempt 94.8 axillary.
--- NOTE | 2020-02-17 09:19 | USCV_ITS ---
Paige Regalado Age: 84 Gender: F : 1935 Exam Date: 02/17/2020 09:46 Ordering Phys: Rocío Yang MD ([email or web address]) Technologist: Michelle Silva Exam Location: [facility] [place] Indication: AFIB BP: / HR: 103 Rhythm: Atrial fibrillation Technical Quality: Fair MEASUREMENTS (Male / Female) Normal Values 2D ECHO LV Diastolic Diameter PLAX 4.0 cm 4.2 - 5.9 / 3.9 - 5.3 cm LV Systolic Diameter PLAX 3.4 cm LV Chamber Size 4.2 cm IVS Diastolic Thickness 0.8 cm 0.6 - 1.0 / 0.6 - 0.9 cm IVS Systolic Thickness 1.2 cm LVPW Diastolic Thickness 0.7 cm 0.6 - 1.0 / 0.6 - 0.9 cm LVPW Systolic Thickness 0.8 cm RV Chamber Size 2.8 cm LVOT Diameter 2.0 cm LV Ejection Fraction 2D Teich 32.9 % LV Ejection Fraction MOD 2C 56.5 % LV Ejection Fraction 2C AL 59.5 % LA Diameter 3.5 cm LA Width 4.0 cm LA Height 4.8 cm RA Width 2.3 cm RA Height 4.2 cm Aorta at Sinotubular Diameter 2.8 cm M-MODE LV Diastolic Diameter MM 5.4 cm 4.2 - 5.9 / 3.9 - 5.3 cm LV Systolic Diameter MM 4.0 cm LV Ejection Fraction MM Teich 49.6 % IVS Diastolic Thickness MM 0.8 cm 0.6 - 1.0 / 0.6 - 0.9 cm IVS Systolic Thickness MM 0.8 cm LVPW Diastolic Thickness MM 0.9 cm 0.6 - 1.0 / 0.6 - 0.9 cm LVPW Systolic Thickness MM 1.3 cm Aortic Annulus Diameter 3.2 cm LA Ao Ratio MM 1.2 MV E Point Septal Separation 0.1 cm DOPPLER AV Peak Velocity 119.0 cm/s LVOT Peak Velocity 84.0 cm/s AV Area Cont Eq vti 2.1 cm squared AV Area Cont Eq pk 2.2 cm squared MV E' Velocity 3.0 cm/s TR Peak Velocity 236.8 cm/s TR Peak Gradient 22.4 mmHg TR Mean Velocity 197.3 cm/s TR Mean Gradient 16.1 mmHg TR Velocity Time Integral 70.7 cm Right Atrial Pressure 3.0 mmHg Pulmonary Artery Systolic Pressu 25.4 mmHg PV Peak Velocity 42.0 cm/s FINDINGS Left Ventricle Normal left ventricular size and systolic function, EF 56 %. No regional wall motion abnormalities. Right Ventricle Normal right ventricular size and systolic function. Right Atrium Normal right atrial size. Left Atrium Severely increased left atrial size. Mitral Valve Thickened mitral valve. Mild to moderate mitral annular calcification. Moderate mitral valve regurgitation. Aortic Valve Mild to moderate aortic valve regurgitation. Tricuspid Valve Moderate tricuspid valve regurgitation. Pulmonic Valve Pulmonic valve not well visualized. Pericardium Normal pericardium without effusion. Aorta Normal ascending aorta dimension. CONCLUSIONS Normal left ventricular size and systolic function, EF 56 %. No regional wall motion abnormalities. Thickened mitral valve. Mild to moderate mitral annular calcification. Moderate mitral valve regurgitation. Mild to moderate aortic valve regurgitation Moderate tricuspid valve regurgitation. There is no pericardial effusion. There are no intracardiac masses. Estimated pulmonary artery peak systolic pressure 25 mmHg No previous study is available for comparison. Dr Rocío Yang MD FACC (Electronically Signed) Final Date: 17 February 2020 18:48 S
[2020-02-17 09:20] LABS: Anion Gap 11.8 (5-19); Blood Urea Nitrogen 11 mg/dL (8-23); Calcium 8.1 mg/dL (8.5-10.5); Carbon Dioxide 25 mmol/L (22-29); Chloride 107 mmol/L (98-107); Creatinine Clr Calc Pharmacy 44.2508; Glucose 119 mg/dL (65-115); Osmolality Calculated 291 mOsm/kg (285-295); Potassium 3.8 mmol/L (3.5-5.1); Sodium 140 mmol/L (136-145)
[2020-02-17 09:22] LABS: Troponin T (5th) Once 11 ng/L (0-10)
[2020-02-17 09:57] LABS: Magnesium 1.7 mg/dL (1.7-2.3); Phosphorus 3.6 mg/dL (2.5-4.5)
[2020-02-17 10:32] LABS: Basophils % 0.1 %; Eosinophils % 0.4 %; Hematocrit 31.9 % (37.0-47.0); Hemoglobin 10.3 g/dL (11.5-15.3); Lymphocytes # 0.6 10^3/uL (0.8-4.8); Lymphocytes % 9.5 %; Mean Corpuscular HGB Conc 32.3 g/dL (30.0-36.0); Mean Corpuscular Hemoglobin 30.5 pg (28.0-34.0); Mean Corpuscular Volume 94.4 fL (81-99); Mean Platelet Volume 10.2 fL (7.4-10.4); Monocytes # 0.2 10^3/uL (0.2-0.9); Monocytes % 3.6 %; Neutrophils # 5.77 10^3/uL (1.8-7.7); Nucleated Red Blood Cells % 0 %; Platelet Count 195 10^3/cmm (130-400); Red Blood Count 3.38 10^6/uL (4.1-5.3); Red Cell Distribution Width 12.7 % (12.1-15.1); White Blood Count 6.7 10^3/uL (4.0-10.0)
[2020-02-17 10:53] LABS: Add Urine Microscopic? NO
[2020-02-17 10:58] LABS: Bilirubin Urine Neg (Negative); Blood Urine Neg (Negative); Glucose Urine UA Norm (Normal); Ketones Urine Negative (Negative); Leukocyte Esterase Urine Negative (Negative); Nitrate Urine Negative (Negative); Protein Urine Neg (Negative); Specific Gravity, Urine 1.015 (1.005-1.030); Sulfosalicylic Acid Urine Negative (Negative); Urine Appearance Clear (CLEAR); Urine Color Yellow (Yellow); Urobilinogen Urine Neg (Negative); pH Urine 8 (5-7)
[2020-02-17 11:06] LABS: Thyroid Stimulating Hormone 1.78 uIU/mL (0.27-4.20)
--- NOTE | 2020-02-17 11:08 | PM.HP ---
Providers/Chief Complaint Admitting Physician: Evans Tello MD Primary Care Provider: Lowell Benson MD Chief Complaint: trimalleolar ankle fracture History of Present Illness Paige Regalado is a 84 year old female with a past medical history of hypertension and dementia that presented to the hospital today for outpatient ankle fracture repair. Patient was noted to be in the OR have an episode of hypotension and noted to be in atrial fibrillation with RVR. She was brought to the postoperative area noted to continue to have hypotension and atrial fibrillation with RVR therefore cardiology was consulted, Dr. Yang. Patient was given amiodarone 300 mg then cardioversion was attempted x4. Patient continued to have atrial fibrillation with RVR but blood pressure was improved. She was transferred to the ICU. I was called by anesthesia at this time to evaluate patient for hospitalization. Patient is poor historian due to her underlying dementia and confusion from sedation. She denies any prior medical problems, denies any prior surgical problems. Review of Systems General: Reports: Other (Difficult to obtain due to patient having underlying dementia, she denies any concerns including any concerns for pain and as noted ) Const: Denies: fever(s) or chills Eyes: Denies: change in vision ENMT: Denies: nasal congestion Card: Denies: chest pain, palpitations or edema Resp: Denies: dyspnea, productive cough or hemoptysis GI: Denies: abdominal pain, nausea, vomiting, diarrhea, constipation, hematochezia or melena : Denies: dysuria or hematuria Musc: Reports: extremity pain Skin/Breast: Denies: rash or new lesions Neuro: Denies: headache(s) or dizziness Psych: Denies: anxiety or depression Endo: Denies: polyuria or hot flashes Esequiel/Lymph: Denies: easy bruising or easy bleeding Medications/Allergies Home Medications Medication Instructions Recorded Confirmed Last Taken Type cyanocobalamin (vitamin B-12) 1,000 mcg PO DAILY 90 Days #90 cap 11/25/19 02/17/20 02/16/20 Rx 1,000 mcg capsule donepezil 5 mg PO DAILY 01/14/20 02/17/20 02/16/20 History lisinopril 5 mg PO DAILY 01/14/20 02/17/20 02/16/20 History citalopram 10 mg PO DAILY 02/09/20 02/17/2020 History hydrocodone-acetaminophen 1 tab PO Q6H PRN #20 tab 02/09/20 02/16/20 Unknown Rx ondansetron HCl [Zofran] 4 mg PO Q6H PRN #15 tab 02/09/20 02/17/20 02/15/20 Rx hydrocodone 5 mg-acetaminophen 325 1 tab PO Q4H PRN 7 Days #30 tab 02/12/20 02/17/20 02/16/20 Rx mg tablet hydrocodone-acetaminophen [[place]] 1 tab PO Q4H PRN #20 tab 02/17/20 Unknown Rx Allergies Allergy/AdvReac Type Severity Reaction Status Date / Time No Known Allergies Allergy Verified 02/12/20 09:19 PFSH Acute PFSH: Medical History Anxiety and depression Benign essential hypertension with target blood pressure below 140/90 Dementia Fall Hypertension Sensorineural hearing loss Surgical History (Updated 02/17/20 @ 11:12 by Colleen White DO) History of cholecystectomy History of open reduction and internal fixation (ORIF) procedure Left medial and lateral malleolus History of total hysterectomy Social History Smoking and tobacco status: former smoker Alcohol intake: never Supplemental PFSH Information: Unable to obtain family history from patient due to her underlying dementia Vitals/I&O/Wt Last Vital Signs Temp 97.9 F 02/17/20 05:40 Pulse 87 02/17/20 08:57 Resp 18 02/17/20 05:40 BP 135/90 02/17/20 08:57 Pulse Ox 100 02/17/20 08:57 02/16/20 02/17/20 02/17/20 22:59 06:59 14:59 Intake Total 1050 / 1050 Balance 1050 / 1050 Weight last 48 hrs Weight 50.802 kg Physical Exam Const: COMMON NORMALS: alert GENERAL APPEARANCE: cooperative ORIENTATION/CONSCIOUSNESS: Yes awake and Yes oriented to person HENMT: COMMON NORMALS: normocephalic and atraumatic HEAD & SCALP: normocephalic and atraumatic Eye: COMMON NORMALS: Equal, round and reactive pupils present PUPIL: Yes Equal, round and reactive pupils present Neck/C-Spine: COMMON NORMALS: supple GENERAL: Yes normal visual inspection Resp: COMMON NORMALS: normal respiratory effort and clear to auscultation bilaterally EFFORT & INSPECTION: Yes able to speak in complete sentences AUSCULTATION: clear to auscultation bilaterally, no rhonchi and no wheezes Cardio: OTHER: Irregularly irregular, tachycardic GI: COMMON NORMALS: Soft to palpation and non-tender INSPECTION: No abdominal distension AUSCULTATION: Yes normoactive bowel sounds PALPATION: Yes Soft to palpation Extremity: NARRATIVE EXTREMITY EXAM: Postoperative boot in place on the left foot Neuro: COMMON NORMALS: CN's II-XII intact bilaterally, moves all extremities and no focal motor deficits SENSORIUM/ORIENTATION: Yes alert and Yes oriented to person SPEECH: speech normal OTHER: Patient has underlying dementia and has some chronic confusion Psych: COMMON NORMALS: cooperative OTHER: Confused Data : 02/17/20 09:54 02/17/20 08:50 A&P Assessment and plan (1) New onset atrial fibrillation: New onset atrial fibrillation with RVR Cardiology, Dr. Yang initially consulted Recommended to admit to hospitalist Admit to ICU with telemetry monitoring Stat echocardiogram Started on esmolol drip Attempted cardioversion x4 in the postoperative area with administration of amiodarone 300 mg Significant fall risk and with underlying dementia therefore would not recommend full dose anticoagulation at this time, will discuss further with cardiology. We will check mag, phos, TSH, other electrolytes Status: Acute (2) Hypotension: Blood pressures improved at time of my exam, hold home lisinopril Status: Acute Additional A&P Information Dementia: We will continue to monitor closely, consider sitter if needed DVT ppx: Lovenox Diet: Clear liquid and increase to cardiac as tolerated Code status: Full code per default, unable to obtain from patient due to dementia Attestations Medical Necessity Statement*: Inpatient admission due to afib RVR with hypotension requiring cardioversion attempt. Expected stay greater than 2 midnights Coding Level of Care Code Acute Commercial Litigation Associate for g Fwd Exam Comprehensive Diagnoses New onset atrial fibrillation I48.91 Hypotension I95.9
--- NOTE | 2020-02-17 12:20 | PM.MISC ---
Miscellaneous Note Purpose of Documentation: Intraoperative New-onset Atrial fibrillation Note: Was called to room urgently by KWABENA Madison near conclusion of OR case. I was informed patient had switched from NSR to sinus cory and then A Fib with RVR. I entered OR and patient was in A fib w/ RVR (Systolics 107, HR 120s) and there appeared to be significant ST depression. Esmolol 50 mg IV had already been given with little effect on rate and phenylephrine boluses were required to get the systolic BP to 107. Patient had no history of A fib noted. I Reached out to Dr. Girder, cardiology, and we decided to give digoxin and continue attempt at rate control. However, upon returning to OR patient's BP was 72/11. This responded to phenylephrine boluses and surgeon was applying dressings at this time. Due to concern for unstable a fib w/ RVR and need for vasopressors to maintain BP, I considered cardioversion in OR. Dr. Osei graciously came to OR to oversee cardioversions. We attempted cardioversion at 120 J and gave amiodarone 300 mg IV bolus. She reverted to a fib shortly after, but rate was controlled at 80 bpm. Cardioversion was attempted several more times at increasing doses. A repeat BP revealed systolics of 52 mmHg and morelia infusion + bolus was started with adequate response. D/t severe HD instability, I placed R radial A line intraoperatively. Patient's LMA was removed and she was brought to ICU where her BP was much more stable and HR continued to be under control. Patient was alert and starting to talk at that time. Dr. White, hospitalist, was consulted for further management.
[2020-02-17] MEDS: citalopram 20 mg Tablet 10 MG PO (12:31)
--- NOTE | 2020-02-17 12:56 | ECG_ITS ---
[facility] Test Date: 2020-02-17 Pat Name: Paige Regalado Department: Room: ICU12 Gender: Female Community Health Nursing Director: : 1935 Requested By: Colleen White Order Number: [id number] Brandee MD: Josse Osei M.D. Measurements Intervals [place] Rate: 118 P: [place]: -1 QRS: 9 QRSD: 86 T: 101 QT: 331 QTc: 464 Interpretive Statements ATRIAL FIBRILLATION WITH RAPID VENTRICULAR RESPONSE WITH ABERRANT CONDUCTION OR VENTRICULAR PREMATURE COMPLEXES NONSPECIFIC ST & T-WAVE ABNORMALITY Compared to ECG 02/17/2020 08:36:05 Ventricular premature complex(es) now present Aberrant conduction of supraventricular beat(s) now present T-wave abnormality still present Electronically Signed On 02-17-2020 18:36:29 CDT by Josse Osei M.D. [email or web address]/[id number]
[2020-02-17] MEDS: esmolol drip 2,500 MG/250 ML PREMIX 15.2 MG IV (13:13)
[2020-02-17] MEDS: HYDROcodone-acetaminophen 5-325 mg Tablet 1 TAB PO (13:27)
--- NOTE | 2020-02-17 13:40 | PC.NURSE ---
Pt converted to sinus rhythm.
--- NOTE | 2020-02-17 13:54 | PC.NURSE ---
Dr White notified of conversion to sinus rhythm. ALso notified of pt incontinent of urine and complaining of burning with frequent need to urinate. Per surgery no beckham inserted.
[2020-02-17 14:09] LABS: Troponin(5th) Baseline 9 ng/L (0-10)
--- NOTE | 2020-02-17 14:56 | ECG_ITS ---
[facility] Test Date: 2020-02-17 Pat Name: Paige Regalado Department: Room: ICU12 Gender: Female Associate Professor Of Art: : 1935 Requested By: Colleen White Order Number: [id number] Brandee MD: Josse Osei M.D. Measurements Intervals [place] Rate: 73 P: 12 PA: 154 QRS: 55 QRSD: 85 T: 16 QT: 413 QTc: 458 Interpretive Statements SINUS RHYTHM WITH OCCASIONAL VENTRICULAR PREMATURE COMPLEXES WITH OCCASIONAL SUPRAVENTRICULAR PREMATURE COMPLEXES Compared to ECG 02/17/2020 13:06:16 Atrial fibrillation no longer present Aberrant conduction of supraventricular beat(s) no longer present T-wave abnormality no longer present Electronically Signed On 02-17-2020 18:37:46 CDT by Josse Osei M.D. [email or web address] [email or web address] [facility].[employer]/[id number]
[2020-02-17] MEDS: HYDROcodone-acetaminophen 5-325 mg Tablet PO (14:58)
[2020-02-17 16:02] LABS: Troponin 5 2HR 11.78 ng/L (0-10); Troponin 5 2HR Delta 2.78 ABS# (0-10)
--- NOTE | 2020-02-17 17:14 | PC.NURSE ---
Call to physician Nurse entered patients room at 1250, ems helicopter pilot alarming Tachycardia . HR showing between 120-140 bpm. Patient states that she is not having pain and just needs to use the bathroom. Nurse attempts to have patient vagal down with no success. Primary nurse notified. Call to and notified of patient vitals. Verbal order to start Esmolol gtt. Will continue to monitor patient.
[2020-02-17] MEDS: metoprolol tartrate 25 mg Tablet PO (17:33)
[2020-02-17] MEDS: enoxaparin 40 mg/0.4 mL Syringe SUBCUT (17:33)
--- NOTE | 2020-02-17 18:56 | ECG_ITS ---
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 Measurements Intervals [place] Rate: 74 P: 35 SC: 139 QRS: 3 QRSD: 86 T: 40 QT: 406 QTc: 451 Interpretive Statements SINUS RHYTHM WITH OCCASIONAL VENTRICULAR PREMATURE COMPLEXES WITH OCCASIONAL SUPRAVENTRICULAR PREMATURE COMPLEXES Compared to ECG 02/17/2020 15:36:09 No significant changes Electronically Signed On 02-17-2020 18:37:56 CDT by Josse Osei M.D. [email or web address]/[id number]
--- NOTE | 2020-02-17 19:51 | PC.NURSE ---
1313 Esmolol started at 50mcg/kg/min. A-fib rate in 120's.
--- NOTE | 2020-02-17 19:56 | PC.NURSE ---
Addendum entered by Migdalia Hernandez RN 02/17/20 20:00: Zoll life pads removed. Cardiac rhythm stable. veniguard changed on IV at shift change, gown changed too. Original Note: Shift summary: Pt alert, confused and pleasant. Pt does follow directions but will forget an hour or two later. She was started on esmolol for heart heart rate 120-140's, converted to sinus rhythm in half an hour. Pt incontinent of urine frequently at begining , this evening she seems to be more aware. She was incontinent of liquid stool earlier this afternoon. Art line very positional, no useful waveforms but able to draw blood with some maneuvering. PT worked with pt around 1600, pt to BSC then chair. Pt on clear liquid diet consumed meals well.
[2020-02-17 20:24] LABS: Troponin 5 6HR 9.48 ng/L (0-10); Troponin 5 6HR Delta 0.48 ng/L (0-12)
--- NOTE | 2020-02-17 21:44 | PC.NURSE ---
Addendum entered by Edvin Patton RN 02/17/20 21:45: Dr. Craig* Original Note: Unable to obtain adequate wave form from art line. Attempted to flush art line, draw blood, unable to perform. Dr. Merino notified of situation, ok'd to remove art line.
[2020-02-18] VITALS (27 sets, daily range): BP systolic 90–131; BP diastolic 43–74; PULSE 72–111; RESP 15–22; TEMP 36.6–37.1; O2SAT 91–100
[2020-02-18] MEDS: acetaminophen 325 mg Tablet 650 MG PO (01:49)
[2020-02-18] MEDS: metoprolol tartrate 25 mg Tablet PO (09:14)
[2020-02-18] MEDS: citalopram 20 mg Tablet 10 MG PO (09:14)
[2020-02-18] MEDS: pantoprazole DR 40 mg Tablet PO (09:14)
--- NOTE | 2020-02-18 11:12 | ANE.PACU2 ---
Inpatient post-anesthesia follow up: Airway intact: Yes Vital signs: Temperature 98.7 F Pulse Rate 87 Respiratory Rate 16 Blood Pressure 118/58 Pulse Oximetry 92 Oxygen Delivery Me thod Room Air Oxygen Flow Rate 2 Fraction of Inspir ed Oxygen Hydration adequate: Yes Nausea and vomiting: No Pain level: 4 Mental status: Baseline
--- NOTE | 2020-02-18 11:44 | P.DS_ITS ---
Discharge Providers Date of Admission: 02/17/20 09:03 Date of Discharge: February 18, 2020 Attending Provider at Admission: Evans Tello MD Attending Provider at Discharge: Colleen White DO Primary Care Provider: Lowell Benson MD Diagnoses at Discharge Discharge Diagnosis (1) New onset atrial fibrillation: Status: Acute (2) Hypotension: Status: Acute Reason for Visit Reason for Visit: trimalleolar ankle fracture Hospital Course Hospital Course: Patient was brought to the hospital for ankle fracture on the left taken to the OR and doing well prior to the procedure. Postoperatively she was noted to have hypotension and be in atrial fibrillation with RVR. She was moved to the ICU and cardiology was consulted. Patient underwent cardioversion for rate control and given amiodarone 300 mg she continued to have atrial fibrillation but rate improved and her blood pressure improved. She was started on an esmolol drip and shortly after converted to normal sinus rhythm. She was transitioned off of the esmolol drip to metoprolol and continued to do well. Blood pressures remained stable and she remained in normal sinus rhythm. She was not started on full dose anticoagulation due to her history of falls and significant underlying dementia. Discussed with cardiology on date of discharge she was cleared for discharge by cardiology with the recommendation to follow-up in 2 weeks and have an event monitor placed at that time. White Hat Hacker agreed for aspirin 325 mg daily along with metoprolol 25 mg twice daily. Called and discussed with patient's daughter, she verbalized understanding and agreed with plan. Home health was also arranged at time of discharge. Physical Exam Const: COMMON NORMALS: alert GENERAL APPEARANCE: cooperative ORIENTATION/CONSCIOUSNESS: Yes awake and Yes oriented to person HENMT: COMMON NORMALS: normocephalic and atraumatic HEAD & SCALP: normocephalic and atraumatic Eye: COMMON NORMALS: Equal, round and reactive pupils present PUPIL: Yes Equal, round and reactive pupils present Neck/C-Spine: COMMON NORMALS: supple GENERAL: Yes normal visual inspection Resp: COMMON NORMALS: normal respiratory effort and clear to auscultation bilaterally EFFORT & INSPECTION: Yes able to speak in complete sentences AUSCULTATION: clear to auscultation bilaterally, no rhonchi and no wheezes Cardio: OTHER: Regular rate and rhythm, no appreciable murmur GI: COMMON NORMALS: Soft to palpation and non-tender INSPECTION: No abdominal distension AUSCULTATION: Yes normoactive bowel sounds PALPATION: Yes Soft to palpation Extremity: NARRATIVE EXTREMITY EXAM: Postoperative boot in place on the left foot Neuro: COMMON NORMALS: CN's II-XII intact bilaterally, moves all extremities and no focal motor deficits SENSORIUM/ORIENTATION: Yes alert and Yes oriented to person SPEECH: speech normal OTHER: Patient has underlying dementia and has some chronic confusion Psych: COMMON NORMALS: cooperative OTHER: Confused Discharge Data Data Completed and Pending: Completed Studies During Hospitalization Category Date Time Status XR ankle LT 2V 73 600 Routine Exams 02/17/20 Completed CV echo complete* [id number] Routine Ultrasound 02/17/20 09:19 Completed Labs from last 24 hours 02/17/20 02/17/20 02/17/20 19:40 15:38 13:40 Troponin T Baselin e 9 Troponin T 120 Min maria guadalupe 11.78 H Delta Troponin T 2.78 Troponin T Hi Sens 6Hr 9.48 Troponin T Hi Sens 6Hr Delta 0.48 Vitals: Last Vital Signs Temp 98.7 F 02/18/20 04:00 Pulse 87 02/18/20 09:26 Resp 16 02/18/20 09:26 BP 118/58 02/18/20 06:00 Pulse Ox 92 02/18/20 09:26 Discharge Plan Discharge Patient Disposition: Home Health Service Condition: Stable Prescriptions: [place] 5-325 mg tablet 1 tab PO Q4H PRN (Reason: pain) Qty: 20 RF: 0 aspirin 325 mg tablet 325 mg PO DAILY 30 Days Qty: 30 RF: 0 metoprolol tartrate 25 mg Tablet 25 mg PO BID 30 Days Qty: 60 RF: 0 Continued hydrocodone-acetaminophen [Sanderson] 5-325 mg tablet 1 tab PO Q4H PRN (Reason: pain) 7 Days Qty: 30 RF: 0 cyanocobalamin (vitamin B-12) 1,000 mcg capsule 1,000 mcg PO DAILY 90 Days Qty: 90 RF: 1 donepezil 5 mg tablet 5 mg PO DAILY RF: 0 lisinopril 5 mg tablet 5 mg PO DAILY RF: 0 citalopram 10 mg tablet 10 mg PO DAILY RF: 0 hydrocodone-acetaminophen 5-325 mg tablet 1 tab PO Q6H PRN (Reason: pain) Qty: 20 RF: 0 ondansetron HCl [Zofran] 4 mg tablet 4 mg PO Q6H PRN (Reason: nausea and vomiting) Qty: 15 RF: 0 Discharge Orders: Discharge Order (Routine); Ordered 02/18/20 Ordered By: Colleen White Referrals: Rocío Yang MD [Physician] - 2 weeks Lowell Benson MD [Primary Care Provider] - 4-7 days Evans Tello MD [Physician] - 2 weeks Discharge Diet: Advance as tolerated Discharge Activity: Limit activity as instructed Activity Restrictions/Additional Instructions: Nonweightbearing left lower extremity. Use walker or wheelchair as necessary. Elevate left ankle as needed for pain and swelling Started on metoprolol 25 mg twice daily due to atrial fibrillation. Started on aspirin 325 mg daily, not started on any higher dose of anticoagulation due to history of falls and dementia. Discharge to home with home health Follow-up with Dr. Tello in 2 weeks Follow-up with primary care provider, Dr. Benson in 4 to 7 days Follow-up with Dr. Yang, staff psychiatrist in 2 weeks. Plan for event monitor placement at that time. Call your physician or present to the ED for any acute illness or concern. 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
--- NOTE | 2020-02-18 11:50 | PM.PN ---
Subjective Subjective: Interval history: Patient is feeling okay. Denies any chest pain or shortness of breath. She seems to be confused. She had echocardiogram yesterday. The LV ejection fraction was within normal limits. Mildly dilated left atrium. Her troponin T's were unremarkable.(Had borderline elevation probably from the repeated cardioversion) Her rhythm spontaneously converted to sinus an hour after the IV esmolol. Currently she is on metoprolol 25 mg p.o. twice daily. So far the blood pressure is stable. She is tolerating the medication well. Medications: Reviewed: Yes Medication Review Details: Current Medications Acetaminophen (Tylenol) 650 mg PO Q6H PRN PRN Reason: MILD PAIN Last Admin: 02/18/20 01:49 Dose: 650 mg Documented by: Hydrocodone Bitart/Acetaminophen ([place] 5-325 Mg) 1 tab PO Q4H PRN PRN Reason: MODERATE PAIN Last Admin: 02/17/20 13:27 Dose: 1 tab Documented by: Hydrocodone Bitart/Acetaminophen ([place] 5-325 Mg) 1 - 2 tab PO Q4H PRN PRN Reason: BREAKTHROUGH PAIN Last Admin: 02/17/20 14:58 Dose: 1 tab Documented by: Albuterol Sulfate (Albuterol) 2.5 mg INHALATION ONCE PRN PRN Reason: WHEEZING Citalopram Hydrobromide (Celexa) 10 mg PO DAILY [facility] Last Admin: 02/18/20 09:14 Dose: 10 mg Documented by: Docusate Sodium (Colace) 100 mg PO BID [facility] Last Admin: 02/18/20 09:13 Dose: Not Given Documented by: Enoxaparin Sodium (Lovenox) 40 mg SUBCUT Q24H [facility] Last Admin: 02/17/20 17:33 Dose: 40 mg Documented by: Esmolol HCl (Brevibloc Drip) 2,500 mg in 250 mls @ 0 mls/hr IV .Q0M [facility]; Protocol Last Titration: 02/17/20 22:30 Dose: 0 mcg/kg/min, 0 mls/hr Documented by: Lidocaine HCl (Lidocaine 2% Viscous) 1 ml TOPICAL PRN PRN PRN Reason: Anesthetic prior to IV start Lorazepam (Ativan) 0.5 mg IVP Q6H PRN PRN Reason: ANXIETY Metoclopramide HCl (Reglan) 10 mg IVP ONCE PRN PRN Reason: N/V if zofran ineffective Metoprolol Tartrate (Lopressor) 25 mg PO BID [facility] Last Admin: 02/18/20 09:14 Dose: 25 mg Documented by: Naloxone HCl (Narcan) 0.1 mg IVP Q2M PRN PRN Reason: RESPIRATORY RATE < 8/MIN Ondansetron HCl (Zofran) 4 mg PO Q6H PRN PRN Reason: NAUSEA Pantoprazole Sodium (Protonix) 40 mg PO DAILY [facility] Last Admin: 02/18/20 09:14 Dose: 40 mg Documented by: Vitals/I&O/Wt Last Vital Signs Temp 98.7 F 02/18/20 04:00 Pulse 87 02/18/20 09:26 Resp 16 02/18/20 09:26 BP 118/58 02/18/20 06:00 Pulse Ox 92 02/18/20 09:26 02/17/20 02/18/20 02/18/20 22:59 06:59 14:59 Intake Total 523.807 / 2533.807 120 / 2653.807 Output Total 400 / 400 Balance 523.807 / 2533.807 -280 / 2253.807 Weight last 48 hrs Weight 112 lb Weight 112 lb Physical Exam Narrative: EXAM NARRATIVE: GENERAL: The patient is intubated and sedated. HEENT: Minimal pallor,no icterus or lymphadenopathy NECK: Trachea appears to be central. No masses noted. No JVD or thyromegaly appreciated. No carotid bruit. RESPIRATORY: Chest is symmetrical. No intercostals muscle retraction or any accessory muscle activation. There is no chest wall tenderness. Breath sounds are heard bilaterally. No rales or rhonchi heard. No evidence of any consolidation. BREASTS: Deferred. HEART: The heart sounds are variable. No S3. Short systolic murmur at the left sternal border. No diastolic murmurs. ABDOMEN: No vessel pulsations or distention. No tenderness. No organomegaly appreciated. No abdominal bruit. Bowel sounds are normally heard. : Deferred. RECTAL: Deferred. LYMPHATIC: No lymphadenopathy noted in the neck . EXTREMITIES: No edema or cyanosis. No clubbing. Peripheral pulses are palpable but weak bilaterally MUSCULOSKELETAL: Trimalleolar fracture of the left ankle-status post fixation SKIN: There are no significant scars or skin rash noted. NEUROPSYCHIATRIC: Patient is intubated and sedated. Data : 02/17/20 09:54 02/17/20 08:50 Other Labs: Laboratory Last Values WBC 6.7 10^3/uL (4.0-10.0) 02/17/20 09:54 RBC 3.38 10^6/uL (4.1-5.3) L 02/17/20 09:54 Hgb 10.3 g/dL (11.5-15.3) L 02/17/20 09:54 Hct 31.9 % (37.0-47.0) L 02/17/20 09:54 MCV 94.4 fL (81-99) 02/17/20 09:54 MCH 30.5 pg (28.0-34.0) 02/17/20 09:54 MCHC 32.3 g/dL (30.0-36.0) 02/17/20 09:54 RDW 12.7 % (12.1-15.1) 02/17/20 09:54 Plt Count 195 10^3/cmm (130-400) 02/17/20 09:54 MPV 10.2 fL (7.4-10.4) 02/17/20 09:54 Neut % (Auto) 86.0 % 02/17/20 09:54 Lymph % (Auto) 9.5 % 02/17/20 09:54 [place] % (Auto) 3.6 % 02/17/20 09:54 Eos % (Auto) 0.4 % 02/17/20 09:54 Baso % (Auto) 0.1 % 02/17/20 09:54 Neut # (Auto) 5.77 10^3/uL (1.8-7.7) 02/17/20 09:54 Lymph # (Auto) 0.6 10^3/uL (0.8-4.8) L 02/17/20 09:54 [place] # (Auto) 0.2 10^3/uL (0.2-0.9) 02/17/20 09:54 Eos # (Auto) 0.0 10^3/uL (0.0-0.8) 02/17/20 09:54 Baso # (Auto) 0.0 10^3/uL (0.0-0.1) 02/17/20 09:54 Nucleated RBC % (auto) 0 % 02/17/20 09:54 Nucleated RBCs # 0.0 /100WBC 02/17/20 09:54 Sodium 140 mmol/L (136-145) 02/17/20 08:50 Potassium 3.8 mmol/L (3.5-5.1) 02/17/20 08:50 Chloride 107 mmol/L (98-107) 02/17/20 08:50 Carbon Dioxide 25 mmol/L (22-29) 02/17/20 08:50 Anion Gap 11.8 (5-19) 02/17/20 08:50 BUN 11 mg/dL (8-23) 02/17/20 08:50 Creatinine 0.7 mg/dL (0.5-0.9) 02/17/20 08:50 GFR Calculation Not Reportable 02/17/20 08:50 Glucose 119 mg/dL (65-115) H 02/17/20 08:50 Calculated Osmolality 291 mOsm/kg (285-295) 02/17/20 08:50 Calcium 8.1 mg/dL (8.5-10.5) L 02/17/20 08:50 Phosphorus 3.6 mg/dL (2.5-4.5) 02/17/20 08:50 Magnesium 1.7 mg/dL (1.7-2.3) 02/17/20 08:50 Troponin T Gen 5 ng/L 11 ng/L (0-10) H 02/17/20 08:50 Troponin T Baseline 9 ng/L (0-10) 02/17/20 13:40 Troponin T 120 Minute 11.78 ng/L (0-10) H 02/17/20 15:38 Delta Troponin T 2.78 ABS# (0-10) 02/17/20 15:38 Troponin T Hi Sens 6Hr 9.48 ng/L (0-10) 02/17/20 19:40 Troponin T Hi Sens 6Hr Delta 0.48 ng/L (0-12) 02/17/20 19:40 TSH 1.78 uIU/mL (0.27-4.20) 02/17/20 08:50 Urine Color Yellow (Yellow) 02/17/20 10:44 Urine Appearance Clear (CLEAR) 02/17/20 10:44 Urine pH 8 (5-7) H 02/17/20 10:44 Ur Specific [place] 1.015 (1.005-1.030) 02/17/20 10:44 Urine Protein Neg (Negative) 02/17/20 10:44 Urine Glucose (UA) Norm (Normal) 02/17/20 10:44 Urine Ketones Negative (Negative) 02/17/20 10:44 Urine Blood Neg (Negative) 02/17/20 10:44 Urine Nitrate Negative (Negative) 02/17/20 10:44 Urine Bilirubin Neg (Negative) 02/17/20 10:44 Prot Sulfosalicylic Acd Negative (Negative) 02/17/20 10:44 Urine Urobilinogen Neg mg/dL (Negative) 02/17/20 10:44 Ur Leukocyte Esterase Negative (Negative) 02/17/20 10:44 Patient had echocardiogram yesterday. Normal left ventricular size and systolic function, EF 56 %. No regional wall motion abnormalities. Thickened mitral valve. Mild to moderate mitral annular calcification. Moderate mitral valve regurgitation. Mild to moderate aortic valve regurgitation Moderate tricuspid valve regurgitation. There is no pericardial effusion. There are no intracardiac masses. Estimated pulmonary artery peak systolic pressure 25 mmHg No previous study is available for comparison. A&P Assessment and plan (1) New onset atrial fibrillation: Patient may be kept on the metoprolol 25 mg p.o. twice daily. Status: Acute (2) Hypotension: Currently resolved. Status: Acute Qualifiers: Hypotension type: postprocedural hypotension Qualified Code(s): I95.81 - Postprocedural hypotension (3) Benign essential hypertension with target blood pressure below 140/90: Currently normotensive Status: Acute (4) Dementia: Management as per the primary Status: Acute Qualifiers: Dementia type: unspecified type Dementia behavioral disturbance: without behavioral disturbance Qualified Code(s): F03.90 - Unspecified dementia without behavioral disturbance Additional A&P Information Discussed with Dr. White. If the patient continues remain stable, may be discharged home from a cardiac standpoint. Please make an appointment to be seen at the heart care services in 2 weeks. We may consider doing an outpatient event monitor to look for any intermittent atrial fibrillation. Because of her dementia and history of frequent falls, it may be appropriate not to start her on any oral anticoagulation at this time. She may be kept on aspirin. Attestations Medical Necessity Statement*: Possible discharge home today. Coding Level of Care Code Acute Wrapper Stripper for [facility] Fwd Diagnoses New onset atrial fibrillation I48.91 Hypotension I95.81 Hypotension type: postprocedural hypotension Benign essential hypertension with target blood pressure below 140/90 I10 Dementia F03.90 Dementia type: unspecified type Dementia behavioral disturbance: without behavioral disturbance
--- NOTE | 2020-02-18 11:57 | PM.OP ---
Operative Report Date of procedure: February 17, 2020 Electrical cardioversion report Preprocedure diagnoses: Atrial fibrillation/hypotension Brief history: This is an 84-year-old white female who went into atrial fibrillation hypertension while undergoing surgery for trimalleolar fracture. Her systolic blood pressure dropped into the 70s. Heart rate was in the 120s to 130s. For further management of her condition, electrical cardioversion was recommended. Location of the procedure: Surgical suite Electrode application: Anteroposterior Electrical energy applied: 125, 150, 175 and 200 J of biphasic current Number of shocks: 5 Final rhythm: Patient had brief episodes of sinus beats followed by atrial fibrillation after every shocks. Final blood pressure: 110/70 with a Keovn-Synephrine Complications: None Recommendation(s): Transferred to the ICU for close monitoring and further management Pre-op Diagnosis: Left trimalleolar ankle
[2020-02-18] MEDS: HYDROcodone-acetaminophen 5-325 mg Tablet 1 TAB PO (12:44)
--- NOTE | 2020-02-18 13:00 | PC.NURSE ---
Pt very busy today. She has been picking at monitor lines and Iv lines. She attempts to get up without assistance repeatedly. Staff has sat in the room and redirected her behavior repeatedly. She likes to visit, topics come and go quickly with her short attention span. She has been brought crayons and paper, towels to fold in attempts to keep her busy and safe. She has been stating she wishes she could stay here, she does not want to go home.
--- NOTE | 2020-02-18 14:41 | PC.OT ---
OT EVALUATION NOT PERFORMED THIS DATE PATIENT IS SCHEDULED FOR DISCHARGE.
--- NOTE | 2020-02-18 15:36 | PC.OT ---
OT NOTE: THIS THERAPIST OBSERVED THE PATIENT SITTING EOB AND EATING LUNCH ALSO PICKING AT ITEMS ON HER BED. DUE TO PATIENTS COGNITIVE STATUS AND DEMONSTRATION OF ADL STATUS, NO FURTHER SKILLED OT REQUIRED.
--- NOTE | 2020-02-18 16:30 | PC.NURSE ---
Discharge instructions provided to patient and grand daughterLesia. Both verbalized understanding. Follow-up appt discussed, [address] Yang [address] Dr Tello, 1 week with family practitioner. Pt/family to make follow-up with Dr Tello. Prescriptions discussed, sent the [place] [facility] pharmacy. Lesia asked about W/C, Case management notified, it is better for them to contact PCP for that, other ron it will be out of pocket. Pt submitted to [facility] awaiting confirmation of acceptance. Pt discharged home with grand daughterLesia.
== END 2020-02-18 16:30 | disposition home health service (06) | DRG 493 ==
LOC: ICU 09:04
PROVIDERS: Internal Medicine Cardiovascular Disease; Admitting Provider Orthopaedic Surgery; PCP Family Medicine; Visit Provider Family Medicine
PROC: 0QSH04Z Reposition Left Tibia with Internal Fixation Device, Open Approach (ICD-10-PCS; principal; 2020-02-17 07:00)
DX: M80.872A Other osteoporosis with current pathological fracture, left ankle and foot, initial encounter for fracture (principal); I97.791 Other intraoperative cardiac functional disturbances during other surgery; W19.XXXA Unspecified fall, initial encounter; F41.8 Other specified anxiety disorders; F03.90 Unspecified dementia, unspecified severity, without behavioral disturbance, psychotic disturbance, mood disturbance, and anxiety; I10 Essential (primary) hypertension; H90.5 Unspecified sensorineural hearing loss; Z87.891 Personal history of nicotine dependence; Z79.891 Long term (current) use of opiate analgesic; I95.81 Postprocedural hypotension; I08.3 Combined rheumatic disorders of mitral, aortic and tricuspid valves
CPT/HCPCS: 12345; 64447; 73600; 76000; 80048; 81003; 83735; 84100; 84443; 84484; 85025; 93005; 93306; 94664; 96372; 97161; C1713; J0282; J0690; J1100; J1580; J1650; J2370; J2405; J2704; J2795; J3010; J3490; J7030

== ENCOUNTER 2020-03-12 11:59 | Emergency (ER) | payer MEDICARE, SELFPAY ==
[2020-03-12] VITALS (7 sets, daily range): BP systolic 110–154; BP diastolic 53–80; PULSE 77–115; RESP 14–26; TEMP 36.6; O2SAT 94–98; BMI 19.1
--- NOTE | 2020-03-12 12:54 | ECG_ITS ---
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 Measurements Intervals [place] Rate: 138 P: SC: -1 QRS: 17 QRSD: 84 T: 52 QT: 279 QTc: 423 Interpretive Statements ATRIAL FIBRILLATION WITH RAPID VENTRICULAR RESPONSE WITH ABERRANT CONDUCTION OR VENTRICULAR PREMATURE COMPLEXES NONSPECIFIC ST & T-WAVE ABNORMALITY Compared to ECG 02/17/2020 18:23:54 Aberrant conduction of supraventricular beat(s) now present T-wave abnormality now present Sinus rhythm no longer present Electronically Signed On 03-12-2020 22:03:44 CDT by Meghna Horan M.D. [id number]
--- NOTE | 2020-03-12 13:25 | ECG_ITS ---
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 Measurements Intervals [place] Rate: 74 P: 45 VA: 142 QRS: 20 QRSD: 90 T: 56 QT: 419 QTc: 465 Interpretive Statements SINUS RHYTHM WITH OCCASIONAL SUPRAVENTRICULAR PREMATURE COMPLEXES NONSPECIFIC ST & T-WAVE ABNORMALITY Compared to ECG 03/12/2020 12:58:43 Atrial fibrillation no longer present Ventricular premature complex(es) no longer present Aberrant conduction of supraventricular beat(s) no longer present T-wave abnormality still present Electronically Signed On 03-12-2020 22:03:19 CDT by Meghna Horan M.D. [id number]
--- NOTE | 2020-03-12 13:25 | XRR_ITS ---
PROCEDURE INFORMATION: Exam: XR Chest, 1 View Exam date and time: 03/12/2020 1:44 PM Age: 84 years old Clinical indication: Chest pain; Type not specified TECHNIQUE: Imaging protocol: XR of the chest Views: 1 view. COMPARISON: CR XR chest 1V portable [id number] 02/09/2020 1:30 PM FINDINGS: Lungs: Unremarkable. No consolidation. Pleural space: Unremarkable. No pleural effusion. No pneumothorax. Heart/Mediastinum: Unremarkable. No cardiomegaly. Bones/joints: Unremarkable. XR/XR chest 1V portable [id number] IMPRESSION: No acute findings.
--- NOTE | 2020-03-12 13:26 | ED_ITS ---
HPI - Chest Pain General: Chief Complaint: Chest Pain Stated Complaint: VOMITING/WEAKNESS Time Seen by Provider: 03/12/20 13:06 Source: patient Mode of arrival: ambulatory Limitations: no limitations History of Present Illness: HPI narrative: Patient is an 84 year old female who according to her daughter was in good health until about 3 weeks ago when she sustained an ankle fracture that required surgery. During surgery she went into afib with RVR. Since then she has been placed on metoprolol and aspirin and she has a monitoring analyst. This week her daughter states that she has been weak, has dyspnea on exertion and has to stop several times while walking short distances. She has also had several episodes of vomiting during the week. Her media marketing director apparently called her today as she was in afib with rvr and asked her to come to the ED, she was in that rhythm on arrival with HR in the 130s but she is back down to the 60's. She denies any chest pain currently Associated symptoms: Reports palpitations; Deny abdominal pain, dyspnea, fever(s), nausea or vomiting Review of Systems General: Reports: 10 or more systems reviewed and unremarkable except in HPI and below Const: Denies: fever(s), chills or body aches Eyes: Denies: change in vision or blurry vision ENMT: Denies: throat pain, enlarged tonsils, odynophagia, hoarseness, mouth pain or swelling of lips/tongue Card: Reports: palpitations, irregular heart rhythm and dyspnea on exertion; Denies: edema or swelling of feet/ankles Resp: Denies: dyspnea, productive cough or non-productive cough GI: Denies: abdominal pain, nausea or vomiting : Denies: flank pain, difficulty voiding, dysuria, urinary frequency, urinary urgency or urinary hesitancy Musc: Denies: neck pain, back pain or extremity swelling Skin/Breast: Denies: rash, pruritus or erythema Neuro: Denies: headache(s), numbness in extremities or weakness in extremities Endo: Denies: polyuria, polydipsia or tired all the time PFSH ED PFSH: Medical History Anxiety and depression Benign essential hypertension with target blood pressure below 140/90 Dementia Fall Hypertension New onset atrial fibrillation Sensorineural hearing loss Surgical History History of cholecystectomy History of open reduction and internal fixation (ORIF) procedure Left medial and lateral malleolus History of total hysterectomy Social History Smoking and tobacco status: former smoker Alcohol intake: never Physical Exam Const: COMMON NORMALS: no acute distress, average body habitus, patient oriented x3, no limitations, healthy appearing, alert and well nourished HENMT: COMMON NORMALS: normocephalic, atraumatic and moist oral mucous membranes HEAD & SCALP: normocephalic and atraumatic Neck/C-Spine: COMMON NORMALS: full ROM, supple, no meningeal signs, no JVD and No carotid bruits Chest: COMMONS NORMALS: normal inspection of the chest and normal palpation of entire chest wall Resp: COMMON NORMALS: normal respiratory effort, No retractions, No use of accessory muscles, clear to auscultation bilaterally and percussion normal AUSCULTATION: clear to auscultation bilaterally PERCUSSION: percussion normal Cardio: COMMON NORMALS: no JVD, regular rate, regular rhythm, S1 normal heart sound present, S2 normal heart sound present, No gallops present (Cardio), No clicks present (Cardio), No murmurs present (Cardio), No rub (Cardio) and Peripheral pulses 2+ throughout RATE: regular rate RHYTHM: regular rhythm HEART SOUNDS: S1 normal heart sound present and S2 normal heart sound present PERIPHERAL PULSES: Peripheral pulses 2+ throughout GI: COMMON NORMALS: Normal to inspection, nondistended, normoactive bowel sounds present, Soft to palpation, non-tender, No hepatosplenomegaly present, no masses and no bruits PALPATION: Yes Soft to palpation and Yes No hepatosplenomegaly present Extremity: COMMON NORMALS: normal to inspection, full ROM, capillary refill normal, no calf tenderness and no pedal edema Neuro: COMMON NORMALS: patient oriented x3 SENSORIUM/ORIENTATION: Yes alert MENINGEAL SIGNS: Yes no meningeal signs Skin: COMMON NORMALS: no rashes or lesions noted, no wounds, turgor normal, no jaundice, no petechiae and no mottling GENERAL SKIN EXAM: no rashes or lesions noted and turgor normal Course Reevaluation(s): Reevaluation #1: Discussed her lab and imaging findings with her. Her BNP is significantly elevated and I think her dyspnea on exertion is likely secondary to CHF. She is rate controlled right now, and is not requiring oxygen supplementation so I think it is safe for her to be discharged home and to follow-up with her primary care provider and media marketing director for further cardiac work-up. Negative high-sensitivity troponin x2. We will discharge her home with a prescription for Lasix. She voiced understanding and is in agreement with the plan. Time: 17:23 Vital Signs: Vital signs: Vital Signs Temperature 97.8 F 03/12/20 12:47 Pulse Rate 88 03/12/20 17:32 Respiratory Rate 18 03/12/20 17:32 Blood Pressure 154/68 03/12/20 17:32 Pulse Oximetry 98 03/12/20 17:32 MDM - Chest Pain MDM Narrative: Medical decision making narrative: 84-year-old female patient who has been having intermittent paroxysmal atrial fibrillation. She has also been complaining of progressively worsening dyspnea on exertion. Evaluation in the emergency department showed that she was in A. fib with RVR on arrival however she spontaneously converted without intervention. Evaluation in the ED showed that she was in congestive heart failure but no overt signs of fluid overload. She is discharged home with a prescription for furosemide. She is to follow-up with her primary care provider and her media marketing director for continued work-up. Medical Records: Attestation: I reviewed the patient's medical records. Lab Data: Attestation: I reviewed the patient's lab results. Labs: Lab Results 03/12/20 03/12/20 03/12/20 Range/Units 13:45 13:45 13:45 WBC 10.2 H (4.0-10.0) 10^3/ uL RBC 3.97 L (4.1-5.3) 10^6/u L Hgb 12.0 (11.5-15.3) g/dL Hct 37.0 (37.0-47.0) % MCV 93.2 (81-99) fL MCH 30.2 (28.0-34.0) pg MCHC 32.4 (30.0-36.0) g/dL RDW 12.7 (12.1-15.1) % Plt Count 242 (130-400) 10^3/c mm MPV 10.1 (7.4-10.4) fL Neut % (Auto) 79.0 % Lymph % (Auto) 9.8 % Hutchinson % (Auto) 10.0 % Eos % (Auto) 0.4 % Baso % (Auto) 0.1 % Neut # (Auto) 8.03 H (1.8-7.7) 10^3/u L Lymph # (Auto) 1.0 (0.8-4.8) 10^3/u L Hutchinson # (Auto) 1.0 H (0.2-0.9) 10^3/u L Eos # (Auto) 0.0 (0.0-0.8) 10^3/u L Baso # (Auto) 0.0 (0.0-0.1) 10^3/u L Nucleated RBC % (a uto) 0 % Nucleated RBCs # 0.0 /100WBC PT 15.20 H (12.1-14.9) SECO NDS INR 1.16 (0.8-1.2) D-Dimer 2.37 H (0-0.59) ug/mIFE U Sodium 131 L (136-145) mmol/L Potassium 3.8 (3.5-5.1) mmol/L Chloride 94 L (98-107) mmol/L Carbon Dioxide 27 (22-29) mmol/L Anion Gap 13.8 (5-19) BUN 14 (8-23) mg/dL Creatinine 0.6 (0.5-0.9) mg/dL GFR Calculation Not Reportable Glucose 131 H (65-115) mg/dL Calculated Osmolal ity 274 L (285-295) mOsm/k g Calcium 8.8 (8.5-10.5) mg/dL Total Bilirubin 0.4 (0.15-1.2) mg/dL AST 12 (0-32) U/L ALT 6 (0-33) U/L Alkaline Phosphata se 112 H (35-105) IU/L Troponin T Baselin e (0-10) ng/L Troponin T 120 Min [place] (0-10) ng/L Delta Troponin T (0-10) ABS# NT-Pro-B Natriuret Pep 3150 H (0-450) pg/mL Total Protein 5.7 L (6.6-8.7) g/dL Albumin 3.5 (3.5-5.2) g/dL Globulin 2.2 (1.3-4.6) g/dL SARS-CoV-2 Ag (Rap id) (Negative) 03/12/20 03/12/20 03/12/20 Range/Units 13:45 14:55 16:30 WBC (4.0-10.0) 10^3/ uL RBC (4.1-5.3) 10^6/u L Hgb (11.5-15.3) g/dL Hct (37.0-47.0) % MCV (81-99) fL MCH (28.0-34.0) pg MCHC (30.0-36.0) g/dL RDW (12.1-15.1) % Plt Count (130-400) 10^3/c mm MPV (7.4-10.4) fL Neut % (Auto) % Lymph % (Auto) % Hutchinson % (Auto) % Eos % (Auto) % Baso % (Auto) % Neut # (Auto) (1.8-7.7) 10^3/u L Lymph # (Auto) (0.8-4.8) 10^3/u L Hutchinson # (Auto) (0.2-0.9) 10^3/u L Eos # (Auto) (0.0-0.8) 10^3/u L Baso # (Auto) (0.0-0.1) 10^3/u L Nucleated RBC % (a uto) % Nucleated RBCs # /100WBC PT (12.1-14.9) SECO NDS INR (0.8-1.2) D-Dimer (0-0.59) ug/mIFE U Sodium (136-145) mmol/L Potassium (3.5-5.1) mmol/L Chloride (98-107) mmol/L Carbon Dioxide (22-29) mmol/L Anion Gap (5-19) BUN (8-23) mg/dL Creatinine (0.5-0.9) mg/dL GFR Calculation Glucose (65-115) mg/dL Calculated Osmolal ity (285-295) mOsm/k g Calcium (8.5-10.5) mg/dL Total Bilirubin (0.15-1.2) mg/dL AST (0-32) U/L ALT (0-33) U/L Alkaline Phosphata se (35-105) IU/L Troponin T Baselin e 10 (0-10) ng/L Troponin T 120 Min [place] 9.77 (0-10) ng/L Delta Troponin T -0.23 L (0-10) ABS# NT-Pro-B Natriuret Pep (0-450) pg/mL Total Protein (6.6-8.7) g/dL Albumin (3.5-5.2) g/dL Globulin (1.3-4.6) g/dL SARS-CoV-2 Ag (Rap id) Negative (Negative) Imaging Data^: CXR: Attestation: I personally reviewed and interpreted this imaging study as follows: Radiologist's impression: [place] [address] XRay Report Signed Patient: Rodolfo Regalado #: [id number] : 5Acct#:[id number] Age/Sex: 84 / FADM Date: 03/12/20 Loc: ERRoom/Bed: Attending Dr: Ordering Provider/Ordering MD: Larry Israel MD, [facility] [place] [facility] Date of Service: 03/12/20 Procedure(s): XR chest 1V portable [id number] Accession Number(s): [id number] Report Number: [id number] PROCEDURE INFORMATION: Exam: XR Chest, 1 View Exam date and time: 03/12/2020 1:44 PM Age: 84 years old Clinical indication: Chest pain; Type not specified TECHNIQUE: Imaging protocol: XR of the chest Views: 1 view. COMPARISON: CR XR chest 1V portable [id number] 02/09/2020 1:30 PM FINDINGS: Lungs: Unremarkable. No consolidation. Pleural space: Unremarkable. No pleural effusion. No pneumothorax. Heart/Mediastinum: Unremarkable. No cardiomegaly. Bones/joints: Unremarkable. XR/XR chest 1V portable [id number] IMPRESSION: No acute findings. Dictated By:Michael Farrar Signed By:Kevin Farrar Date/Time:03/12/201421 DD/ 20 CTA Chest: Attestation: I personally reviewed and interpreted this imaging study as follows: Radiologist's impression: [address] [place] [address] CT Scan Report Signed Patient: Rodolfo Regalado #: [id number] : 5Acct#:[id number] Age/Sex: 84 / FADM Date: 03/12/20 Loc: ERRoom/Bed: Attending Dr: Ordering Provider/Ordering MD: Larry Israel MD, [facility] [place] Date of Service: 03/12/20 Procedure(s): CT angio chest PE protcl [id number] Accession Number(s): [id number] Report Number: [id number] PROCEDURE INFORMATION: Exam: CT Angiography Chest With Contrast Exam date and time: 03/12/2020 2:50 PM Age: 84 years old Clinical indication: Other: Afib; Patient HX: A-fib w rvr, weakness, n/v S/P ankle orif 3 weeks ago; Additional info: SOB, quintana, high pretest probability TECHNIQUE: Imaging protocol: Computed tomographic angiography of the chest with intravenous contrast. 3D rendering (Not supervised by radiologist): MIP and/or 3D reconstructed images were created by the technologist. Radiation optimization: All CT scans at this facility use at least one of these dose optimization techniques: automated exposure control; mA and/or kV adjustment per patient size (includes targeted exams where dose is matched to clinical indication); or iterative reconstruction. Contrast material: OMNI 350; Contrast volume: 65 ml; Contrast route: INTRAVENOUS (IV); COMPARISON: CR (CHEST, ) 03/12/2020 1:50 PM RADIATION DOSE METRICS: Total DLP (mGy-cm): 355.39 FINDINGS: Pulmonary arteries: There is no pulmonary embolus. Aorta: Unremarkable. No aortic aneurysm. No aortic dissection. Lungs: There is mild ground-glass opacity in the lungs and a mild tree-in-bud pattern compatible with mild pneumonitis, atelectasis and/or edema. There is no dense lobar consolidation. Pleural space: Unremarkable. No pneumothorax. No pleural effusion. Heart: Unremarkable. No cardiomegaly. No pericardial effusion. Mediastinal space: A small hiatal hernia is present. Lymph nodes: Unremarkable. No enlarged lymph nodes. Bones/joints: Unremarkable. No acute fracture. Soft tissues: Unremarkable. CT/CT angio chest PE protcl [id number] IMPRESSION: 1. There is no pulmonary embolus. 2. There is mild ground-glass opacity in the lungs and a mild tree-in-bud pattern compatible with mild pneumonitis, atelectasis and/or edema. Radiation Dose CTDIVOL = (mGy): DLP = 355.39 (mGy-cm) Dictated By:Leonor Simpson Signed By:Emeterio Simpsonigned Date/Time:03/12/201532 DD/ 31 EKG Data^: EKG 1: Attestation: I personally reviewed and interpreted this EKG as follows: EKG interpretation date: 03/12/20 EKG interpretation time: 12:58 Prior EKG tracings: not available for review Interpretation: Atrial fibrillation with rapid ventricular rhythm. Heart rate [address] changes. EKG 2: Attestation: I personally reviewed and interpreted this EKG as follows: EKG interpretation date: 03/13/20 EKG interpretation time: 15:49 Prior EKG tracings: available for review Interpretation: Sinus rhythm with occasional supraventricular premature complexes. Heart rate 73 beats per minutes. No ST changes. EKG 3: Attestation: I personally reviewed and interpreted this EKG as follows: EKG interpretation date: 03/13/20 EKG interpretation time: 16:26 Prior EKG tracings: available for review Interpretation: Sinus rhythm with occasional supraventricular premature complexes. Heart rate 75 beats per minutes. No ST changes. Discharge Plan Discharge Patient Disposition: Home Clinical Impression: CHF (congestive heart failure) Qualifiers: Heart failure type: unspecified Heart failure chronicity: unspecified Qualified Code(s): I50.9 - Heart failure, unspecified A-fib Qualifiers: Atrial fibrillation type: paroxysmal Qualified Code(s): I48.0 - Paroxysmal atrial fibrillation Condition: Stable Prescriptions: New Lasix 20 mg tablet 10 mg PO DAILY Qty: 15 RF: 0 ondansetron 4 mg tablet,disintegrating 4 mg PO DAILY PRN (Reason: nausea and vomiting) 3 Days Qty: 21 RF: 0 Continued hydrocodone-acetaminophen [[place]] 5-325 mg tablet 1 tab PO Q4H PRN (Reason: pain) 7 Days Qty: 30 RF: 0 hydrocodone-acetaminophen [[place]] 5-325 mg tablet 1 tab PO Q4H PRN (Reason: pain) 7 Days Qty: 30 RF: 0 cyanocobalamin (vitamin B-12) 1,000 mcg capsule 1,000 mcg PO DAILY 90 Days Qty: 90 RF: 1 donepezil 5 mg tablet 5 mg PO DAILY RF: 0 lisinopril 5 mg tablet 5 mg PO DAILY RF: 0 citalopram 10 mg tablet 10 mg PO DAILY RF: 0 hydrocodone-acetaminophen 5-325 mg tablet 1 tab PO Q6H PRN (Reason: pain) Qty: 20 RF: 0 ondansetron HCl [Zofran] 4 mg tablet 4 mg PO Q6H PRN (Reason: nausea and vomiting) Qty: 15 RF: 0 [place] 5-325 mg tablet 1 tab PO Q4H PRN (Reason: pain) Qty: 20 RF: 0 metoprolol tartrate 25 mg Tablet 25 mg PO BID 30 Days Qty: 60 RF: 0 aspirin 325 mg tablet 325 mg PO DAILY 30 Days Qty: 30 RF: 0 Discharge Orders: Discharge Order (Routine); Ordered 03/12/20 Ordered By: Larry Israel Referrals: KARON TODD, LITHOGRAPHIC PRINTING MACHINIST [Primary Care Provider] - 1-3 days Discharge Diet: Usual diet Discharge Activity: Increase activity as tolerated Patient Instructions: Heart Failure (ED), Atrial Fibrillation (ED) Activity Restrictions/Additional Instructions: Return for any new or worsening symptoms. Follow-up with your primary care provider within 3 days. Take the water pill as prescribed, start with half a pill once a day and continue based on what your doctor tells you to do. Discharge Date/Time: 03/12/20 17:33 Coding Level of Care Code ED Instrument Assembly Supervisor for Chg Fwd Exam Comprehensive
[2020-03-12 14:03] LABS: Basophils % 0.1 %; Eosinophils % 0.4 %; Lymphocytes % 9.8 %; Mean Corpuscular HGB Conc 32.4 g/dL (30.0-36.0); Mean Corpuscular Hemoglobin 30.2 pg (28.0-34.0); Mean Corpuscular Volume 93.2 fL (81-99); Mean Platelet Volume 10.1 fL (7.4-10.4); Neutrophils # 8.03 10^3/uL (1.8-7.7); Nucleated Red Blood Cells % 0 %; Platelet Count 242 10^3/cmm (130-400); Red Blood Count 3.97 10^6/uL (4.1-5.3); Red Cell Distribution Width 12.7 % (12.1-15.1); White Blood Count 10.2 10^3/uL (4.0-10.0)
[2020-03-12 14:21] LABS: INR 1.16 (0.8-1.2)
[2020-03-12 14:23] LABS: D Dimer 2.37 ug/mIFEU (0-0.59)
[2020-03-12 14:27] LABS: Troponin(5th) Baseline 10 ng/L (0-10)
[2020-03-12 14:36] LABS: Alanine Aminotransferase 6 U/L (0-33); Albumin Level 3.5 g/dL (3.5-5.2); Alkaline Phosphatase 112 IU/L (35-105); Anion Gap 13.8 (5-19); Aspartate Amino Transferase 12 U/L (0-32); Blood Urea Nitrogen 14 mg/dL (8-23); Calcium 8.8 mg/dL (8.5-10.5); Carbon Dioxide 27 mmol/L (22-29); Chloride 94 mmol/L (98-107); Globulin 2.2 g/dL (1.3-4.6); Glucose 131 mg/dL (65-115); NT Pro B Type Natriuretic Pept 3150 pg/mL (0-450); Osmolality Calculated 274 mOsm/kg (285-295); Potassium 3.8 mmol/L (3.5-5.1); Sodium 131 mmol/L (136-145); Total Bilirubin 0.4 mg/dL (0.15-1.2); Total Protein 5.7 g/dL (6.6-8.7)
--- NOTE | 2020-03-12 14:41 | CTR_ITS ---
PROCEDURE INFORMATION: Exam: CT Angiography Chest With Contrast Exam date and time: 03/12/2020 2:50 PM Age: 84 years old Clinical indication: Other: Afib; Patient HX: A-fib w rvr, weakness, n/v S/P ankle orif 3 weeks ago; Additional info: SOB, quintana, high pretest probability TECHNIQUE: Imaging protocol: Computed tomographic angiography of the chest with intravenous contrast. 3D rendering (Not supervised by radiologist): MIP and/or 3D reconstructed images were created by the technologist. Radiation optimization: All CT scans at this facility use at least one of these dose optimization techniques: automated exposure control; mA and/or kV adjustment per patient size (includes targeted exams where dose is matched to clinical indication); or iterative reconstruction. Contrast material: OMNI 350; Contrast volume: 65 ml; Contrast route: INTRAVENOUS (IV); COMPARISON: CR (CHEST, ) 03/12/2020 1:50 PM RADIATION DOSE METRICS: Total DLP (mGy-cm): 355.39 FINDINGS: Pulmonary arteries: There is no pulmonary embolus. Aorta: Unremarkable. No aortic aneurysm. No aortic dissection. Lungs: There is mild ground-glass opacity in the lungs and a mild tree-in-bud pattern compatible with mild pneumonitis, atelectasis and/or edema. There is no dense lobar consolidation. Pleural space: Unremarkable. No pneumothorax. No pleural effusion. Heart: Unremarkable. No cardiomegaly. No pericardial effusion. Mediastinal space: A small hiatal hernia is present. Lymph nodes: Unremarkable. No enlarged lymph nodes. Bones/joints: Unremarkable. No acute fracture. Soft tissues: Unremarkable. CT/CT angio chest PE protcl [id number] IMPRESSION: 1. There is no pulmonary embolus. 2. There is mild ground-glass opacity in the lungs and a mild tree-in-bud pattern compatible with mild pneumonitis, atelectasis and/or edema. Radiation Dose CTDIVOL = (mGy): DLP = 355.39 (mGy-cm)
[2020-03-12] MEDS: iohexol 350 mg/mL 100 mL Btl IV (15:15)
--- NOTE | 2020-03-12 15:25 | ECG_ITS ---
[facility] Test Date: 2020-03-12 Pat Name: Paige Regalado Department: Room: Gender: Female Gear Nicker: : 1935 Requested By: Larry Israel I Order Number: [id number] Brandee MD: Meghna Horan M.D. Measurements Intervals [place] Rate: 75 P: 46 NC: 152 QRS: 28 QRSD: 91 T: 42 QT: 408 QTc: 456 Interpretive Statements SINUS RHYTHM WITH OCCASIONAL SUPRAVENTRICULAR PREMATURE COMPLEXES NONSPECIFIC T-WAVE ABNORMALITY Compared to ECG 03/12/2020 14:38:54 No significant changes Electronically Signed On 03-12-2020 22:12:59 CDT by Meghna Horan M.D. [email or web address] you.CereSoftmonroe [facility] hospitalField [facility].Candescent SoftBase/store/OM/[id number]
[2020-03-12 15:46] LABS: Troponin 5 2HR 9.77 ng/L (0-10)
[2020-03-12 15:55] LABS: Troponin 5 2HR Delta -0.23 ABS# (0-10)
[2020-03-12 17:16] LABS: SARS Covid-2 Antigen Negative (Negative)
[2020-03-12] MEDS: ondansetron 4 MG Tablet PO (17:33)
--- NOTE | 2020-03-12 19:25 | ECG_ITS ---
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 Measurements Intervals [place] Rate: 73 P: 56 FL: 151 QRS: 23 QRSD: 90 T: 31 QT: 416 QTc: 459 Interpretive Statements SINUS RHYTHM WITH OCCASIONAL SUPRAVENTRICULAR PREMATURE COMPLEXES NONSPECIFIC T-WAVE ABNORMALITY Compared to ECG 03/12/2020 12:58:43 Atrial fibrillation no longer present Ventricular premature complex(es) no longer present Aberrant conduction of supraventricular beat(s) no longer present T-wave abnormality still present Electronically Signed On 03-12-2020 22:13:37 CDT by Meghna Horan M.D. [email or web address].[email or web address]. v. (son[facility] centervLine[facility].Blink for iPhone and Android/store/OM/[id number]
== END 2020-03-12 17:33 | disposition home or self-care (01) ==
PROVIDERS: Emergency Provider Family Medicine; PCP Nurse Practitioner Family
DX: I11.0 Hypertensive heart disease with heart failure (principal); I50.9 Heart failure, unspecified; I48.0 Paroxysmal atrial fibrillation; Z79.82 Long term (current) use of aspirin; F03.90 Unspecified dementia, unspecified severity, without behavioral disturbance, psychotic disturbance, mood disturbance, and anxiety; Z87.891 Personal history of nicotine dependence
CPT/HCPCS: 12345; 71045; 71275; 80053; 83880; 84484; 85025; 85378; 85610; 87426; 93005; 99283; 99284; Q0162; Q9967

== ENCOUNTER → 2020-03-29 13:20 | Outpatient (BNVA) | payer MEDICARE, SELFPAY | PROVIDERS: PCP Nurse Practitioner Family; Visit Provider Orthopaedic Surgery | DX: Z48.89 Encounter for other specified surgical aftercare (principal) | CPT/HCPCS: 73610 ==

== ENCOUNTER → 2020-04-19 07:54 | Outpatient (BNVA) | payer MEDICARE, SELFPAY | PROVIDERS: PCP Nurse Practitioner Family; Referring Provider Nurse Practitioner Family; Visit Provider Specialist | DX: G30.9 Alzheimer's disease, unspecified (principal); F02.80 Dementia in other diseases classified elsewhere, unspecified severity, without behavioral disturbance, psychotic disturbance, mood disturbance, and anxiety; Z87.891 Personal history of nicotine dependence | CPT/HCPCS: 99204 ==

== ENCOUNTER → 2020-04-26 13:20 | Outpatient (BNVA) | payer MEDICARE, SELFPAY | PROVIDERS: PCP Nurse Practitioner Family; Visit Provider Orthopaedic Surgery | DX: Z47.89 Encounter for other orthopedic aftercare (principal); S82.842D Displaced bimalleolar fracture of left lower leg, subsequent encounter for closed fracture with routine healing; X58.XXXD Exposure to other specified factors, subsequent encounter | CPT/HCPCS: 73610 ==

== ENCOUNTER 2020-05-10 16:30 | Emergency (ER) | payer MEDICARE, SELFPAY ==
--- NOTE | 2020-05-10 16:36 | ECG_ITS ---
[facility] Test Date: 2020-05-10 Pat Name: Paige Regalado Department: Room: Gender: Female Professor Of Law: : 1935 Requested By: Cale Ruiz Order Number: [id number] Reading MD: Rocío Yang M.D. Measurements Intervals [place] Rate: 99 P: 58 HI: 162 QRS: 18 QRSD: 90 T: 69 QT: 375 QTc: 482 Interpretive Statements SINUS RHYTHM WITH OCCASIONAL VENTRICULAR PREMATURE COMPLEXES NONSPECIFIC ST & T-WAVE ABNORMALITY Compared to ECG 03/12/2020 16:26:31 Ventricular premature complex(es) now present T-wave abnormality still present Electronically Signed On 05-11-2020 21:24:04 TRAY CHECKER by Rocío Yang M.D. [email or web address] [facility].Capital Float/store/OM/[id number]
--- NOTE | 2020-05-10 16:36 | CTR_ITS ---
PROCEDURE INFORMATION: Exam: CT Head Without Contrast Exam date and time: 05/10/2020 5:31 PM Age: 84 years old Clinical indication: Altered mental status/memory loss; Additional info: AMS TECHNIQUE: Imaging protocol: Computed tomography of the head without contrast. Radiation optimization: All CT scans at this facility use at least one of these dose optimization techniques: automated exposure control; mA and/or kV adjustment per patient size (includes targeted exams where dose is matched to clinical indication); or iterative reconstruction. COMPARISON: No relevant prior studies available. RADIATION DOSE METRICS: Total DLP (mGy-cm): 793.49 FINDINGS: Brain: Mild atrophy and mild white matter chronic microvascular changes are noted. No hemorrhage or CT evidence of acute infarction is seen. Cerebral ventricles: No ventriculomegaly. Bones/joints: Unremarkable. No acute fracture. Paranasal sinuses: Visualized sinuses are unremarkable. No fluid levels. Mastoid air cells: Visualized mastoid air cells are well aerated. Soft tissues: Unremarkable. CT/CT head wo con* [id number] IMPRESSION: No acute intracranial abnormality. Radiation Dose CTDIVOL = (mGy): DLP = 793.49 (mGy-cm)
--- NOTE | 2020-05-10 16:36 | XRR_ITS ---
PROCEDURE INFORMATION: Exam: XR Chest, 1 View Exam date and time: 05/10/2020 5:54 PM Age: 84 years old Clinical indication: Cough and dyspnea; Additional info: Dyspnea/cough TECHNIQUE: Imaging protocol: XR of the chest Views: 1 view. COMPARISON: CR XR chest 1V portable [id number] 03/12/2020 1:50 PM FINDINGS: Lungs: The lungs are clear. Pleural space: Unremarkable. No pleural effusion. No pneumothorax. Heart/Mediastinum: Unremarkable. No cardiomegaly. Bones/joints: Unremarkable. XR/XR chest 1V portable [id number] IMPRESSION: No acute cardiopulmonary abnormality.
[2020-05-10 16:56] VITALS: BP 154/84; PULSE 99; RESP 16; TEMP 36.3; O2SAT 97; BMI 18.6
--- NOTE | 2020-05-10 18:41 | W.ED.PSYCH ---
HPI - Psych General: Chief Complaint: Psychiatric Symptoms Stated Complaint: AMS Time Seen by Provider: 05/10/20 18:32 Source: patient Mode of arrival: ambulatory Limitations: no limitations History of Present Illness: HPI Narrative: 84-year-old female who is here with daughter having increasing hallucinations. Daughter states that she thinks that people on TV are real and is having auditory hallucinations. She was on Aricept for her dementia but was switched to Exelon but has not been taking her meds. Daughter states she was up all night having increased agitation and worsening hallucinations. Daughter feels that she is not safe and may harm herself. Patient here is cooperative but states she has been hearing things. Associated symptoms: Reports auditory hallucinations and visual hallucinations Review of Systems Const: Denies: fever(s), chills, body aches or change in appetite Eyes: Denies: blurry vision or eye discomfort ENMT: Denies: throat pain or dental pain Card: Denies: chest pain Resp: Denies: dyspnea GI: Denies: abdominal pain, nausea, vomiting or diarrhea : Denies: dysuria Musc: Denies: neck pain or back pain Skin/Breast: Denies: rash Neuro: Denies: headache(s) Psych: Reports: visual hallucinations and auditory hallucinations Esequiel/Lymph: Denies: easy bruising All/Imm: Denies: urticaria PFSH ED PFSH: Medical History (Updated 05/11/20 @ 01:44 by Lila Franklin MD) Anxiety and depression Benign essential hypertension with target blood pressure below 140/90 Dementia Fall Hypertension New onset atrial fibrillation Sensorineural hearing loss Surgical History History of cholecystectomy History of open reduction and internal fixation (ORIF) procedure Left medial and lateral malleolus History of total hysterectomy Social History Smoking and tobacco status: former smoker Alcohol intake: never Physical Exam Const: COMMON NORMALS: no acute distress, patient oriented x3 and healthy appearing HENMT: COMMON NORMALS: normocephalic and atraumatic HEAD & SCALP: normocephalic and atraumatic Eye: COMMON NORMALS: Equal, round and reactive pupils present and EOMs intact bilaterally PUPIL: Yes Equal, round and reactive pupils present Neck/C-Spine: COMMON NORMALS: full ROM and supple Chest: COMMONS NORMALS: normal inspection of the chest and normal palpation of entire chest wall Resp: COMMON NORMALS: normal respiratory effort, No retractions, No use of accessory muscles and clear to auscultation bilaterally AUSCULTATION: clear to auscultation bilaterally Cardio: COMMON NORMALS: regular rate, regular rhythm and No murmurs present (Cardio) RATE: regular rate RHYTHM: regular rhythm GI: COMMON NORMALS: Normal to inspection, nondistended, normoactive bowel sounds present, Soft to palpation, non-tender and no masses PALPATION: Yes Soft to palpation Extremity: COMMON NORMALS: normal to inspection and full ROM Neuro: COMMON NORMALS: patient oriented x3, moves all extremities and no focal motor deficits Psych: COMMON NORMALS: Normal thought process present and cooperative; negative for denies hallucinations THOUGHT PROCESS: Normal thought process present and confused Skin: COMMON NORMALS: no rashes or lesions noted and no wounds GENERAL SKIN EXAM: no rashes or lesions noted MDM - Psych MDM Narrative: Medical decision making narrative: Patient presents here with hallucinations likely due to her dementia. Patient's became increasingly agitated at home and will place for geriatric psych placement. Patient is medically cleared here and accepted at [facility]. Patient has been stable while here. Will transfer there. Lab Data: Labs: Lab Results 05/10/20 05/10/20 05/10/20 Range/Units 19:18 19:18 19:18 WBC 6.9 (4.0-10.0) 10^3/ uL RBC 4.08 L (4.1-5.3) 10^6/u L Hgb 11.9 (11.5-15.3) g/dL Hct 36.7 L (37.0-47.0) % MCV 90.0 (81-99) fL MCH 29.2 (28.0-34.0) pg MCHC 32.4 (30.0-36.0) g/dL RDW 12.9 (12.1-15.1) % Plt Count 220 (130-400) 10^3/c mm MPV 9.7 (7.4-10.4) fL Neut % (Auto) 59.7 % Lymph % (Auto) 28.2 % [place] % (Auto) 11.0 % Eos % (Auto) 0.9 % Baso % (Auto) 0.1 % Neut # (Auto) 4.10 (1.8-7.7) 10^3/u L Lymph # (Auto) 1.9 (0.8-4.8) 10^3/u L [place] # (Auto) 0.8 (0.2-0.9) 10^3/u L Eos # (Auto) 0.1 (0.0-0.8) 10^3/u L Baso # (Auto) 0.0 (0.0-0.1) 10^3/u L Nucleated RBC % (a uto) 0 % Nucleated RBCs # 0.0 /100WBC Sodium 138 (136-145) mmol/L Potassium 3.5 (3.5-5.1) mmol/L Chloride 99 (98-107) mmol/L Carbon Dioxide 29 (22-29) mmol/L Anion Gap 13.5 (5-19) BUN 13 (8-23) mg/dL Creatinine 0.6 (0.5-0.9) mg/dL GFR Calculation Not Reportable Glucose 113 (65-115) mg/dL Calculated Osmolal ity 287 (285-295) mOsm/k g Calcium 9.5 (8.5-10.5) mg/dL Magnesium 1.9 (1.7-2.3) mg/dL Total Bilirubin 0.4 (0.15-1.2) mg/dL AST 14 (0-32) U/L ALT 6 (0-33) U/L Alkaline Phosphata se 95 (35-105) IU/L Creatine Kinase 35 (26-192) U/L Total Protein 6.7 (6.6-8.7) g/dL Albumin 3.8 (3.5-5.2) g/dL Globulin 2.9 (1.3-4.6) g/dL Lipase 17 (13-60) U/L Urine Color Yellow (Yellow) Urine Appearance Hazy A (CLEAR) Urine pH 6 (5-7) Ur Specific Gravit y 1.020 (1.005-1.030) Urine Protein Neg (Negative) Urine Glucose (UA) Norm (Normal) Urine Ketones Negative (Negative) Urine Blood 3+ H (Negative) Urine Nitrate Negative (Negative) Urine Bilirubin 1+ H (Negative) Urine Urobilinogen Norm (Negative) mg/dL Ur Leukocyte Isabelle ase 2+ H (Negative) Urine RBC 0-4 H (0-2) /hpf Urine WBC 10-15 H (0-5) /hpf Ur Squamous Epith Cells 5-10 H (0-5) /hpf Amorphous Sediment Not Reportable Urine Bacteria 1+ H (NONE) /hpf Urine Mucus 1+ /hpf Salicylates < 0.3 L (3-10) mg/dL Urine Opiates Scre en (Negative) ng/mL Acetaminophen < 5.0 L (10-30) ug/mL Ur Barbiturates Sc reen (Negative) ng/mL Ur Phencyclidine S crn (Negative) ng/mL Ur Amphetamines Sc reen (Negative) ng/mL U Benzodiazepines Scrn (Negative) ng/mL Urine Cocaine Scre en (Negative) ng/mL U Marijuana (THC) Screen (Negative) ng/mL Ethyl Alcohol < 10 (0-10) mg/dL SARS-CoV-2 Ag (Rap id) (Negative) 05/10/20 05/10/20 Range/Units 19:18 19:18 WBC (4.0-10.0) 10^3/ uL RBC (4.1-5.3) 10^6/u L Hgb (11.5-15.3) g/dL Hct (37.0-47.0) % MCV (81-99) fL MCH (28.0-34.0) pg MCHC (30.0-36.0) g/dL RDW (12.1-15.1) % Plt Count (130-400) 10^3/c mm MPV (7.4-10.4) fL Neut % (Auto) % Lymph % (Auto) % [place] % (Auto) % Eos % (Auto) % Baso % (Auto) % Neut # (Auto) (1.8-7.7) 10^3/u L Lymph # (Auto) (0.8-4.8) 10^3/u L [place] # (Auto) (0.2-0.9) 10^3/u L Eos # (Auto) (0.0-0.8) 10^3/u L Baso # (Auto) (0.0-0.1) 10^3/u L Nucleated RBC % (a uto) % Nucleated RBCs # /100WBC Sodium (136-145) mmol/L Potassium (3.5-5.1) mmol/L Chloride (98-107) mmol/L Carbon Dioxide (22-29) mmol/L Anion Gap (5-19) BUN (8-23) mg/dL Creatinine (0.5-0.9) mg/dL GFR Calculation Glucose (65-115) mg/dL Calculated Osmolal ity (285-295) mOsm/k g Calcium (8.5-10.5) mg/dL Magnesium (1.7-2.3) mg/dL Total Bilirubin (0.15-1.2) mg/dL AST (0-32) U/L ALT (0-33) U/L Alkaline Phosphata se (35-105) IU/L Creatine Kinase (26-192) U/L Total Protein (6.6-8.7) g/dL Albumin (3.5-5.2) g/dL Globulin (1.3-4.6) g/dL Lipase (13-60) U/L Urine Color (Yellow) Urine Appearance (CLEAR) Urine pH (5-7) Ur Specific Gravit y (1.005-1.030) Urine Protein (Negative) Urine Glucose (UA) (Normal) Urine Ketones (Negative) Urine Blood (Negative) Urine Nitrate (Negative) Urine Bilirubin (Negative) Urine Urobilinogen (Negative) mg/dL Ur Leukocyte Isabelle ase (Negative) Urine RBC (0-2) /hpf Urine WBC (0-5) /hpf Ur Squamous Epith Cells (0-5) /hpf Amorphous Sediment Urine Bacteria (NONE) /hpf Urine Mucus /hpf Salicylates (3-10) mg/dL Urine Opiates Scre en Negative (Negative) ng/mL Acetaminophen (10-30) ug/mL Ur Barbiturates Sc reen Negative (Negative) ng/mL Ur Phencyclidine S crn Negative (Negative) ng/mL Ur Amphetamines Sc reen Negative (Negative) ng/mL U Benzodiazepines Scrn Negative (Negative) ng/mL Urine Cocaine Scre en Negative (Negative) ng/mL U Marijuana (THC) Screen Negative (Negative) ng/mL Ethyl Alcohol (0-10) mg/dL SARS-CoV-2 Ag (Rap id) Negative (Negative) Imaging Data^: CT Head: Radiologist's impression: [employer] [address] [place] [address]. [place] [address] CT Scan Report Signed Patient: Paige Regalado Unit #: [id number] : [id number] Age/Sex: 84 / F ADM Date: 05/10/20 Loc: ER Room/Bed: Attending Dr: Ordering Provider/Ordering MD: Cale Childress DO Date of Service: 05/10/20 Procedure(s): CT head wo con* [id number] Accession Number(s): [id number] Report Number: [id number] PROCEDURE INFORMATION: Exam: CT Head Without Contrast Exam date and time: 05/10/2020 5:31 PM Age: 84 years old Clinical indication: Altered mental status/memory loss; Additional info: AMS TECHNIQUE: Imaging protocol: Computed tomography of the head without contrast. Radiation optimization: All CT scans at this facility use at least one of these dose optimization techniques: automated exposure control; mA and/or kV adjustment per patient size (includes targeted exams where dose is matched to clinical indication); or iterative reconstruction. COMPARISON: No relevant prior studies available. RADIATION DOSE METRICS: Total DLP (mGy-cm): 793.49 FINDINGS: Brain: Mild atrophy and mild white matter chronic microvascular changes are noted. No hemorrhage or CT evidence of acute infarction is seen. Cerebral ventricles: No ventriculomegaly. Bones/joints: Unremarkable. No acute fracture. Paranasal sinuses: Visualized sinuses are unremarkable. No fluid levels. Mastoid air cells: Visualized mastoid air cells are well aerated. Soft tissues: Unremarkable. CT/CT head wo con* [id number] IMPRESSION: No acute intracranial abnormality. CXR: Radiologist's impression: [employer] [address] [place] [address]. [place] [address] XRay Report Signed Patient: Paige Regalado Unit #: [id number] : [id number] Age/Sex: 84 / F ADM Date: 05/10/20 Loc: ER Room/Bed: Attending Dr: Ordering Provider/Ordering MD: Cale Childress DO Date of Service: 05/10/20 Procedure(s): XR chest 1V portable [id number] Accession Number(s): [id number] Report Number: [id number] PROCEDURE INFORMATION: Exam: XR Chest, 1 View Exam date and time: 05/10/2020 5:54 PM Age: 84 years old Clinical indication: Cough and dyspnea; Additional info: Dyspnea/cough TECHNIQUE: Imaging protocol: XR of the chest Views: 1 view. COMPARISON: CR XR chest 1V portable [id number] 03/12/2020 1:50 PM FINDINGS: Lungs: The lungs are clear. Pleural space: Unremarkable. No pleural effusion. No pneumothorax. Heart/Mediastinum: Unremarkable. No cardiomegaly. Bones/joints: Unremarkable. XR/XR chest 1V portable [id number] IMPRESSION: No acute cardiopulmonary abnormality. EKG Data^: EKG 1: Attestation: I personally reviewed and interpreted this EKG as follows: EKG interpretation date: 05/10/20 EKG interpretation time: 19:35 Interpretation: nsr hr [address] or t wave abnormalities qrs 90 qtc 431 Discharge Plan Discharge Patient Disposition: Xfer Psychiatric Hosp Clinical Impression: Hallucination Alzheimer disease Qualifiers: Alzheimer's disease onset: unspecified onset Dementia behavioral disturbance: with behavioral disturbance Qualified Code(s): G30.9 - Alzheimer's disease, unspecified Condition: Stable Referrals: KARON TODD FNP [Primary Care Provider] - Coding Level of Care Code ED Merchandiser Retail Representative for Chg Fwd Exam Comprehensive
[2020-05-10 19:02] VITALS: PULSE 78; RESP 18; O2SAT 98
[2020-05-10 19:38] LABS: Basophils % 0.1 %; Eosinophils # 0.1 10^3/uL (0.0-0.8); Eosinophils % 0.9 %; Hematocrit 36.7 % (37.0-47.0); Hemoglobin 11.9 g/dL (11.5-15.3); Lymphocytes # 1.9 10^3/uL (0.8-4.8); Lymphocytes % 28.2 %; Mean Corpuscular HGB Conc 32.4 g/dL (30.0-36.0); Mean Corpuscular Hemoglobin 29.2 pg (28.0-34.0); Mean Platelet Volume 9.7 fL (7.4-10.4); Monocytes # 0.8 10^3/uL (0.2-0.9); Neutrophils % 59.7 %; Nucleated Red Blood Cells % 0 %; Platelet Count 220 10^3/cmm (130-400); Red Blood Count 4.08 10^6/uL (4.1-5.3); Red Cell Distribution Width 12.9 % (12.1-15.1); White Blood Count 6.9 10^3/uL (4.0-10.0)
[2020-05-10 20:01] LABS: SARS Covid-2 Antigen Negative (Negative)
[2020-05-10 20:05] VITALS: RESP 16; O2SAT 97
[2020-05-10 20:06] LABS: Alanine Aminotransferase 6 U/L (0-33); Albumin Level 3.8 g/dL (3.5-5.2); Alkaline Phosphatase 95 IU/L (35-105); Anion Gap 13.5 (5-19); Aspartate Amino Transferase 14 U/L (0-32); Blood Urea Nitrogen 13 mg/dL (8-23); Calcium 9.5 mg/dL (8.5-10.5); Carbon Dioxide 29 mmol/L (22-29); Chloride 99 mmol/L (98-107); Creatine Phosphokinase 35 U/L (26-192); Creatinine Clr Calc Pharmacy 44.2508; Globulin 2.9 g/dL (1.3-4.6); Glucose 113 mg/dL (65-115); Lipase 17 U/L (13-60); Magnesium 1.9 mg/dL (1.7-2.3); Osmolality Calculated 287 mOsm/kg (285-295); Potassium 3.5 mmol/L (3.5-5.1); Sodium 138 mmol/L (136-145); Total Bilirubin 0.4 mg/dL (0.15-1.2); Total Protein 6.7 g/dL (6.6-8.7)
--- NOTE | 2020-05-10 20:07 | PC.NURSE ---
Pt is not suicidal. Daughter at bedside
[2020-05-10 20:09] LABS: Amphetamines Screen Urine Negative (Negative); Barbiturates Screen Urine Negative (Negative); Benzodiazepines Screen Urine Negative (Negative); Cocaine Screen Urine Negative (Negative); Opiate Screen Urine Negative (Negative); PCP Screen Urine Negative (Negative); THC Screen Urine Negative (Negative)
[2020-05-10 20:13] LABS: Acetaminophen < 5.0 ug/mL (10-30); Alcohol Level < 10 mg/dL (0-10); Salicylate < 0.3 mg/dL (3-10)
[2020-05-10 20:14] LABS: Blood Urine 3+ (Negative); Glucose Urine UA Norm (Normal); Ketones Urine Negative (Negative); Nitrate Urine Negative (Negative); Protein Urine Neg (Negative); Urine Appearance Hazy (CLEAR); Urine Color Yellow (Yellow); pH Urine 6 (5-7)
[2020-05-10 20:15] LABS: Add Urine Culture? Yes; Add Urine Microscopic? YES; Bacteria Urine 1+ /hpf; Bilirubin Urine 1+ (Negative); Leukocyte Esterase Urine 2+ (Negative); Mucus Urine 1+ /hpf; RBC Urine 0-4 /hpf (0-2); Urobilinogen Urine Norm (Negative)
[2020-05-10 21:05] VITALS: PULSE 85; RESP 18; O2SAT 97
[2020-05-10] MEDS: LORazepam 1 mg Tablet PO (21:50)
[2020-05-10 22:00] VITALS: RESP 18; O2SAT 96
--- NOTE | 2020-05-10 22:05 | PC.NURSE ---
Call to [address] [place] [address] to check on availability. Fax to Kerrie [phone]
--- NOTE | 2020-05-10 22:50 | PC.NURSE ---
Call to [facility] for possible inpt Psy availability for Geriatric. Page at [phone].
[2020-05-10 23:00] VITALS: RESP 16; O2SAT 98
--- NOTE | 2020-05-11 01:50 | PC.NURSE ---
SHANITA Sy to call back to confirm fax and placement.
--- NOTE | 2020-05-11 01:53 | PC.NURSE ---
[facility] called [facility]. no beds tonight, call back in AM. Per Virginia gary RN
--- NOTE | 2020-05-11 01:56 | PC.NURSE ---
Confirmation on Fax with Nicole. Continue to review for possible admission
--- NOTE | 2020-05-11 02:07 | PC.NURSE ---
Call to [facility] director of web marketing Possible availability [phone]
--- NOTE | 2020-05-11 02:19 | PC.NURSE ---
Called to [facility]. Spoke with Yoon. Yoon reports has covid positive pt on unit at this time
--- NOTE | 2020-05-11 02:24 | PC.NURSE ---
[facility] availability of female bed. Fax info requested to [phone]
--- NOTE | 2020-05-11 02:27 | PC.NURSE ---
SHANITA for [facility] for possible psych placement
--- NOTE | 2020-05-11 02:29 | PC.NURSE ---
[facility]. No current Female availability now. Seen info for possible availability in AM. WILSON Fonseca [phone]
--- NOTE | 2020-05-11 02:55 | PC.NURSE ---
[facility], [place] [phone] WILSON Wright will fax us 2 forms to fill out FAX to us [phone]
[2020-05-11 03:00] VITALS: BP 124/74; PULSE 78; RESP 18; O2SAT 98
[2020-05-11 04:00] VITALS: RESP 18; O2SAT 98
[2020-05-11 05:00] VITALS: RESP 16; O2SAT 98
[2020-05-11 05:29] VITALS: BP 149/80; PULSE 102; RESP 14; O2SAT 97
[2020-05-11] MEDS: cephALEXin 500 mg Capsule PO (05:33)
--- NOTE | 2020-05-11 07:11 | PC.NURSE ---
Started sitting on patient at 0700 per request of nurse. Patient is waiting on transport to facility.
--- NOTE | 2020-05-11 07:46 | PC.NURSE ---
[facility] crew came and got patient at 0745, sitting discontinued.
== END 2020-05-11 07:51 ==
PROVIDERS: Family Medicine; Emergency Provider Emergency Medicine; PCP Nurse Practitioner Family
DX: G30.9 Alzheimer's disease, unspecified (principal); R44.3 Hallucinations, unspecified; I10 Essential (primary) hypertension; I48.91 Unspecified atrial fibrillation; Z87.891 Personal history of nicotine dependence
CPT/HCPCS: 12345; 70450; 71045; 80053; 80306; 80307; 81001; 82550; 83690; 83735; 85025; 87086; 87426; 93005; 99284; 99285

== ENCOUNTER 2020-07-11 18:32 | Observation (INO) | payer OTHER, SELFPAY ==
--- NOTE | 2020-07-11 18:34 | XR_ITS ---
WS: [id number] Exam: XR hip LT 2-3V wo/w pel* [id number] Date/Time of Exam: 07/11/2020 6:43 PM Reason For Exam: fall There is a comminuted intertrochanteric fracture of the left hip with marked coxa vera deformity and shortening. There is moderate degenerative narrowing of the joint compartment. Soft tissues are unrem arkable. XR/XR hip LT 2-3V wo/w pel* [id number] IMPRESSION: 1. Comminuted intertrochanteric fracture of the left hip with pronounced coxa v era deformity and shortening.
[2020-07-11 18:50] VITALS: BP 140/79; PULSE 84; RESP 18; TEMP 36.9; O2SAT 99; BMI 19.0
--- NOTE | 2020-07-11 19:02 | ED_ITS ---
HPI - Fall General: Chief Complaint: Fall Stated Complaint: FALL, R HIP PAIN Time Seen by Provider: 07/11/20 18:33 Source: patient and EMS Mode of arrival: EMS Limitations: no limitations History of Present Illness: HPI Narrative: 84-year-old female has a history of severe dementia had a fall today. Patient has left hip pain from the fall. She denies hitting her head. Patient is on hospice. She rates her pain a 7 out of 10. Full history is difficult due to her dementia. She is able to move all extremities except that left leg complaint: fall Associated symptoms-after fall: Denies abdominal pain, chest pain, headache(s) or neck pain Review of Systems Const: Denies: fever(s), chills, body aches or change in appetite Eyes: Denies: blurry vision or eye discomfort ENMT: Denies: throat pain or dental pain Card: Denies: chest pain Resp: Denies: dyspnea GI: Denies: abdominal pain, nausea, vomiting or diarrhea : Denies: dysuria Musc: Reports: joint pain; Denies: neck pain or back pain Skin/Breast: Denies: rash Neuro: Denies: headache(s) Psych: Denies: depression Esequiel/Lymph: Denies: easy bruising All/Imm: Denies: urticaria PFSH ED PFSH: Medical History (Updated 07/11/20 @ 20:28 by Lila Franklin MD) Anxiety and depression Benign essential hypertension with target blood pressure below 140/90 Dementia Fall Hypertension New onset atrial fibrillation Sensorineural hearing loss Surgical History History of cholecystectomy History of open reduction and internal fixation (ORIF) procedure Left medial and lateral malleolus History of total hysterectomy Social History Smoking and tobacco status: former smoker Alcohol intake: never Physical Exam Const: COMMON NORMALS: no acute distress, patient oriented x3 and healthy appearing HENMT: COMMON NORMALS: normocephalic and atraumatic HEAD & SCALP: normocephalic and atraumatic Eye: COMMON NORMALS: Equal, round and reactive pupils present and EOMs intact bilaterally PUPIL: Yes Equal, round and reactive pupils present Neck/C-Spine: COMMON NORMALS: full ROM and supple Chest: COMMONS NORMALS: normal inspection of the chest and normal palpation of entire chest wall Resp: COMMON NORMALS: normal respiratory effort, No retractions, No use of accessory muscles and clear to auscultation bilaterally AUSCULTATION: clear to auscultation bilaterally Cardio: COMMON NORMALS: regular rate, regular rhythm and No murmurs present (Cardio) RATE: regular rate RHYTHM: regular rhythm GI: COMMON NORMALS: Normal to inspection, nondistended, normoactive bowel sounds present, Soft to palpation, non-tender and no masses PALPATION: Yes Soft to palpation Extremity: NARRATIVE EXTREMITY EXAM: Internal rotation of left leg along with tenderness to left hip Neuro: COMMON NORMALS: patient oriented x3, moves all extremities and no focal motor deficits Psych: COMMON NORMALS: mental status grossly normal, Normal thought process present and cooperative THOUGHT PROCESS: Normal thought process present Skin: COMMON NORMALS: no rashes or lesions noted and no wounds GENERAL SKIN EXAM: no rashes or lesions noted Course Vital Signs: Vital signs: Vital Signs Temperature 98.4 F 07/11/20 18:50 Pulse Rate 84 07/11/20 18:50 Respiratory Rate 18 07/11/20 18:50 Blood Pressure 140/79 07/11/20 18:50 Pulse Oximetry 99 07/11/20 18:50 MDM - Fall MDM Narrative: Medical decision making narrative: Patient presents here with left hip fracture after a fall. I spoke with her hospice nurse along with her daughter. Daughter does not want any treatment or surgeries. She states she does not feel like she is able to take care of her at home tonight and discussed this with the hospice nurse I spoke with the hospitalist and will admit for observation for pain control and hospice states they are to help prepare her thing at home and feels like she should just be able to stay overnight and be stable for discharge tomorrow. I spoke to hospitalist will admit. Imaging Data^: xr l hip: Attestation: I personally reviewed and interpreted this imaging study as follows: My impression: left hip fx Discharge Plan Discharge Patient Disposition: Admitted As Inpatient Clinical Impression: Fall Qualifiers: Encounter type: initial encounter Qualified Code(s): W19.XXXA - Unspecified fall, initial encounter Closed left hip fracture Qualifiers: Encounter type: initial encounter Qualified Code(s): S72.002A - Fracture of unspecified part of neck of left femur, initial encounter for closed fracture Condition: Stable Coding Level of Care Code ED Leadership Development Instructor for Anabel Goldman Exam Comprehensive
--- NOTE | 2020-07-11 20:10 | PC.PHAR ---
pts family states that most of the pts medication was dced today-pts family states the pt took some of the meds today but then dced them-pts family states the pt got a rx for risperdal she thinks and states she is unsure of the mg and the directions-pts family states the pt hasnt taken the new rx yet
--- NOTE | 2020-07-11 20:18 | PM.HP ---
Providers/Chief Complaint Primary Care Provider: Molly Medrano Chief Complaint: FALL, R HIP PAIN History of Present Illness Paige Regalado is a 84 year old female who is under hospice care for end-stage dementia presented today after sustaining a fall. Diagnostics in the ER revealed left hip fracture. Her DPOA, daughter, does not want to pursue any surgical intervention. Hospice nurse and daughter is in the ER. They are endorsing that Ms. Bueno fell twice on her left hip today, her gait was abnormal today. It is hard to get any detailed history from the patient because of her advanced dementia. She was started on hospice a day ago. Her Eliquis and other antipsychotics were discontinued. At the time of my evaluation patient was oriented to herself, I try to give her grape juice and pudding but she refused. She was not able to tell me if she is in pain. Review of Systems General: Reports: ROS unobtainable due to medical condition (Advanced dementia) Medications/Allergies Home Medications Medication Instructions Recorded Confirmed Last Taken Type apixaban [Eliquis] See Rx Instructions .ROUTE .COMPLEX 05/10/20 07/11/20 07/11/20 History Risperdal See Rx Instructions .ROUTE .COMPLEX 07/11/20 07/11/20 Unknown History escitalopram oxalate See Rx Instructions .ROUTE .COMPLEX 07/11/20 07/11/20 07/11/20 History olanzapine See Rx Instructions .ROUTE .COMPLEX 07/11/20 07/11/20 07/11/20 History propranolol See Rx Instructions .ROUTE .COMPLEX 07/11/20 07/11/20 07/11/20 History rivastigmine See Rx Instructions .ROUTE .COMPLEX 07/11/20 07/11/20 Unknown History Allergies Allergy/AdvReac Type Severity Reaction Status Date / Time No Known Allergies Allergy Verified 07/11/20 20:14 PFSH Acute PFSH: Medical History Anxiety and depression Benign essential hypertension with target blood pressure below 140/90 Dementia Fall Hypertension New onset atrial fibrillation Sensorineural hearing loss Surgical History History of cholecystectomy History of open reduction and internal fixation (ORIF) procedure Left medial and lateral malleolus History of total hysterectomy Social History Smoking and tobacco status: former smoker Alcohol intake: never Vitals/I&O/Wt Last Vital Signs Temp 98.4 F 07/11/20 18:50 Pulse 84 07/11/20 18:50 Resp 18 07/11/20 18:50 BP 140/79 07/11/20 18:50 Pulse Ox 99 07/11/20 18:50 Weight last 48 hrs Weight 50.349 kg Physical Exam Narrative: EXAM NARRATIVE: Frail thin elderly female Currently laying in her bed with saturating 100% on room air Normal hemodynamics Only oriented to herself, Able to move her extremities no strokelike symptoms however she is talking to herself and pleasantly confused not cooperative during my interview, she refused pudding in grape juice as well No vascular compromise of lower extremities S1, S2 no active chest pain No acute respiratory distress No abdominal pain Limited range of motion of lower extremities A&P Assessment and plan (1) Closed left hip fracture: Patient sustained a fall at home Poor historian, EKG showing sinus rhythm, her Eliquis was discontinued recently, she was started on hospice service 24 hours ago because of advanced dementia Daughter her DPOA does not want to pursue surgical intervention I would manage her pain with Dilaudid 0.5 mg every 4 along bowel regimen Risk of avascular necrosis, leg contracture and explained to the daughter, her questions were answered to her satisfaction Status: Acute Qualifiers: Encounter type: initial encounter Qualified Code(s): S72.002A - Fracture of unspecified part of neck of left femur, initial encounter for closed fracture (2) Alzheimer disease: Advanced dementia on hospice Would use Zyprexa to 6 hours if needed for agitation One-to-one sitter as patient is oriented to herself trying to get out of bed with her hip fracture Status: Acute Qualifiers: Alzheimer's disease onset: unspecified onset Dementia behavioral disturbance: with behavioral disturbance Qualified Code(s): G30.9 - Alzheimer's disease, unspecified; F02.81 - Dementia in other diseases classified elsewhere with behavioral disturbance Additional A&P Information Patient looks very dehydrated: I would continue her on cardiac diet I highly doubt she will be able to cooperate for IV fluid resuscitation, she would definitely require assisted feeding DVT prophylaxis: SCDs, she is under hospice care daughter does not want to pursue low-dose Eliquis dose DNR/DNI Attestations Medical Necessity Statement*: Anticipating discharge in less than 48 hours overnight pain management for hip fracture she has underlying advanced dementia Time Spent in Patient Care: (>than 50% of time spent in counselling and/or direct pt care on unit). 35mins Coding Level of Care Code Acute Mounter Automatic for Leathag Fwd Diagnoses Closed left hip fracture S72.002A Encounter type: initial encounter Alzheimer disease G30.9; F02.81 Alzheimer's disease onset: unspecified onset Dementia behavioral disturbance: with behavioral disturbance
[2020-07-11 20:35] VITALS: BP 146/74; PULSE 79; RESP 16; O2SAT 96
[2020-07-11 21:35] VITALS: BP 140/82; PULSE 86; RESP 18; O2SAT 95
[2020-07-11 21:36] VITALS: BP 140/82; PULSE 85; RESP 18; O2SAT 96
[2020-07-11 22:07] VITALS: BP 141/67; PULSE 92; RESP 17; TEMP 36.8; O2SAT 95
[2020-07-12] VITALS (10 sets, daily range): BP systolic 117–159; BP diastolic 54–69; PULSE 78–134; RESP 17–19; TEMP 36.5–37.1; O2SAT 93–97
[2020-07-12] MEDS: HYDROmorphone 1 mg/mL INJ 1 mL 0.5 MG IVP (09:09)
[2020-07-12] MEDS: ondansetron 2 mg/ML SDV 2 mL 4 MG IVP (09:09)
--- NOTE | 2020-07-12 13:27 | PM.PN ---
Subjective Subjective: Interval history: Viewed history and physical. Discharge planning is working on possible respite care at [facility]. They are working in conjunction with hospice. Medications: Reviewed: Yes Vitals/I&O/Wt Last Vital Signs Temp 98.8 F 07/12/20 11:24 Pulse 100 07/12/20 11:24 Resp 18 07/12/20 11:24 BP 117/66 07/12/20 11:24 Pulse Ox 97 07/12/20 11:24 07/11/20 07/12/20 07/12/20 22:59 06:59 14:59 Output Total 350 / 350 Balance -350 / -350 Weight last 48 hrs Weight 50.349 kg Physical Exam Narrative: EXAM NARRATIVE: General exam is a confused female, complaining of some discomfort in her back and hip Neck is supple no lymphadenopathy or thyromegaly Cardiovascular regular rate and rhythm without murmur Lungs clear Abdomen is soft positive bowel sounds Extremities no cyanosis clubbing or edema Urinary Catheter Management^: Julian: Cath Placed During This Visit: yes Reason for Continuing Indwelling Catheter: Required Immobilization for Trauma or Surgery or Anesthesia Urinary Catheter Date of Insertion: 07/11/20 Urinary Catheter Time of Insertion: 20:34 A&P Assessment and plan (1) Closed left hip fracture: Secondary to her underlying severe dementia family has decided to proceed with comfort care and hospice only. They do not want an operation. Hospice is attempting placement for respite at [facility] Add Roxanol as needed for pain Add Ativan as needed for anxiety Dilaudid can be administered for breakthrough pain Status: Acute Qualifiers: Encounter type: initial encounter Qualified Code(s): S72.002A - Fracture of unspecified part of neck of left femur, initial encounter for closed fracture (2) Alzheimer disease: Advanced dementia on hospice Zyprexa as needed Status: Acute Qualifiers: Alzheimer's disease onset: unspecified onset Dementia behavioral disturbance: with behavioral disturbance Qualified Code(s): G30.9 - Alzheimer's disease, unspecified; F02.81 - Dementia in other diseases classified elsewhere with behavioral disturbance Additional A&P Information DVT prophylaxis: SCDs, she is under hospice care daughter does not want to pursue low-dose Eliquis dose DNR/DNI Attestations Medical Necessity Statement*: Awaiting placement for respite care via hospice Has no intervention planned she will stay observation status. Coding Level of Care Code Acute Condominium Property Manager for Chg Fwd Diagnoses Closed left hip fracture S72.002A Encounter type: initial encounter Alzheimer disease G30.9; F02.81 Alzheimer's disease onset: unspecified onset Dementia behavioral disturbance: with behavioral disturbance
[2020-07-12] MEDS: OLANZapine 10 mg VIAL 5 MG IM (22:03)
--- NOTE | 2020-07-13 04:53 | PC.NURSE ---
when outpatient physical therapist assistant went in room pt was yelling and did not want to be touched. vitals were not taken
--- NOTE | 2020-07-13 05:19 | PC.NURSE ---
PM NOTE: PATIENT HAS SHOWN SIGNS OF PAIN THROUGHOUT NIGHT WELL CONFUSION AND AGITATION. PATIENT HAS REMOVED GOWN AND COVERS MULTIPLE TIMES THROUGHOUT SHIFT. CHIEF OPERATOR LOCK TENDER ATTEMPTED VITALS AT 0400, PATIENT REFUSES AND YELLED OUT WHEN CHIEF OPERATOR LOCK TENDER TRIED TO PUT CUFF ON FOR A BLOOD PRESSURE.
[2020-07-13] MEDS: OLANZapine 10 mg VIAL 5 MG IM (06:01)
[2020-07-13 06:02] VITALS: RESP 19
[2020-07-13 07:19] VITALS: BP 135/65; PULSE 78; RESP 18; TEMP 36.7; O2SAT 96
[2020-07-13 08:41] VITALS: RESP 18
[2020-07-13 10:57] VITALS: BP 125/55; PULSE 69; RESP 17; TEMP 36.6; O2SAT 97
--- NOTE | 2020-07-13 12:41 | PM.DCS ---
Discharge Providers Date of Admission: 07/11/20 19:58 Date of Discharge: July 13, 2020 Attending Provider at Admission: Josse Hauser MD Attending Provider at Discharge: Thuan Arteaga MD Primary Care Provider: Molly Medrano Diagnoses at Discharge Discharge Diagnosis (1) Closed left hip fracture: Status: Acute Qualifiers: Encounter type: initial encounter Qualified Code(s): S72.002A - Fracture of unspecified part of neck of left femur, initial encounter for closed fracture (2) Alzheimer disease: Status: Acute Qualifiers: Alzheimer's disease onset: unspecified onset Dementia behavioral disturbance: with behavioral disturbance Qualified Code(s): G30.9 - Alzheimer's disease, unspecified; F02.81 - Dementia in other diseases classified elsewhere with behavioral disturbance Reason for Visit Reason for Visit: FALL, R HIP PAIN Hospital Course Hospital Course Paige who is on hospice for end-stage dementia presented to the hospital after a fall and was found to have a left intertrochanteric hip fracture. Secondary to her severe dementia, and as she was on hospice family did not want this repaired. She was placed in observation status for pain control. Placement was achieved on July 13, to hospice respite at a skilled facility. This was arranged. Physical Exam Narrative: EXAM NARRATIVE: General exam pain is under control Cardiovascular irregular, irregular with accelerated rate Lungs clear Abdomen is soft with positive bowel sounds Extremities no cyanosis clubbing or edema Urinary Catheter Management^: Julian: Cath Placed During This Visit: yes Reason for Continuing Indwelling Catheter: Hospice/Comfort/Palliative Care Urinary Catheter Date of Insertion: 07/11/20 Urinary Catheter Time of Insertion: 20:34 Discharge Data Data Completed and Pending: Completed Studies During Hospitalization Category Date Time Status XR hip LT 2-3V wo /w pel* [id number] Stat Exams 07/11/20 18:34 Completed Vitals: Last Vital Signs Temp 97.9 F 07/13/20 10:57 Pulse 69 07/13/20 10:57 Resp 17 07/13/20 10:57 BP 125/55 07/13/20 10:57 Pulse Ox 97 07/13/20 10:57 Discharge Plan Discharge Patient Disposition: Xfer SNF Condition: Stable Prescriptions: New morphine concentrate 100 mg/5 mL (20 mg/mL) Solution 5 mg sublingual Q2H PRN (Reason: Air Hunger) Qty: 30 RF: 0 Ativan 2 mg/mL solution 1 mg buccal Q4H PRN (Reason: anxiety) Qty: 10 RF: 0 No Action Eliquis 2.5 mg tablet See Rx Instructions .ROUTE .COMPLEX RF: 0 olanzapine 2.5 mg tablet See Rx Instructions .ROUTE .COMPLEX RF: 0 propranolol 20 mg tablet See Rx Instructions .ROUTE .COMPLEX RF: 0 escitalopram oxalate 10 mg tablet See Rx Instructions .ROUTE .COMPLEX RF: 0 rivastigmine 4.6 mg/24 hr patch 24 hour See Rx Instructions .ROUTE .COMPLEX RF: 0 Risperdal See Rx Instructions .ROUTE .COMPLEX RF: 0 Discharge Orders: Discharge Order (Routine); Ordered 07/13/20 Ordered By: Thuan Arteaga Referrals: Molly Medrano FNP [Primary Care Provider] - Discharge Diet: Regular Activity Restrictions/Additional Instructions: No weight bearing. Discharge Attestations Time Spent in Discharge Care*: greater than 30 min Quality Metrics Clinical Quality Measures During this hospital stay, did patient experience: None Coding Level of Care Code Acute Director Of Manufacturing Operations for Anabel Fwd Diagnoses Closed left hip fracture S72.002A Encounter type: initial encounter Alzheimer disease G30.9; F02.81 Alzheimer's disease onset: unspecified onset Dementia behavioral disturbance: with behavioral disturbance
[2020-07-13 14:30] LABS: SARS Covid-2 Antigen Negative (Negative)
[2020-07-13 16:05] VITALS: BP 138/56; PULSE 71; RESP 18; TEMP 36.8; O2SAT 92
[2020-07-13 16:09] VITALS: RESP 15
--- NOTE | 2020-07-13 16:33 | PC.NURSE ---
[facility]
--- NOTE | 2020-07-13 16:39 | PC.NURSE ---
report called to [facility] nursing staff
== END 2020-07-13 16:25 | disposition skilled nursing facility (03) ==
LOC: ER 20:28 → MEDSURG 20:56 → MS 2A 07-13 13:34
PROVIDERS: Admitting Provider Internal Medicine; Emergency Provider Emergency Medicine; PCP Nurse Practitioner Family; Visit Provider Internal Medicine
DX: S72.002A Fracture of unspecified part of neck of left femur, initial encounter for closed fracture (principal); X58.XXXA Exposure to other specified factors, initial encounter; G30.9 Alzheimer's disease, unspecified; F02.81 Dementia in other diseases classified elsewhere, unspecified severity, with behavioral disturbance; I10 Essential (primary) hypertension; F41.9 Anxiety disorder, unspecified; F32.9 Major depressive disorder, single episode, unspecified; I48.91 Unspecified atrial fibrillation; Z87.891 Personal history of nicotine dependence
CPT/HCPCS: 51702; 73502; 87426; 96374; 96375; 99285; G0378; J1170; J2405; J3490